=== PATIENT | female | born 1955 | race Caucasian/White ===

== ENCOUNTER 2021-05-05 15:30 | Inpatient (IN) ==
[2021-05-05] MEDS ORDERED: ALBUT/IPRATROP 3MG/0.5MG NEB 3 ML VIAL NEB STA (16:03)
[2021-05-05] MEDS ORDERED: SODIUM CHLORIDE 0.9% 500 ML IV ONE (16:03)
[2021-05-05] MEDS ORDERED: ACETAMINOPHEN 500 MG TAB PO STA (16:03)
--- NOTE | 2021-05-05 16:07 | Emergency Department Note ---
History of Present Illness General Chief complaint: Respiratory Problems Stated complaint: SOB/HIGH FEVER/CHEST PAIN Time Seen by Provider: 05/05/21 15:46 Source: patient Mode of arrival: ambulatory Limitations: no limitations History of Present Illness This patient is a 65-year-old female who presents to the emergency department for evaluation of cough, fever and shortness of breath. Patient states she has had symptoms for 3 to 4 days. She has been feeling more short of breath. She does have a history of COPD. She has been using her regular medications without relief. She reports that her mother has been sick with diarrhea recently. Patient vomited once yesterday but denies any diarrhea or abdominal pain. She has had headaches and body aches. She states her temperature has been up to 103 F. She did not receive a COVID-19 vaccine. She has not received an influenza vaccine. Home Medications Medication Instructions Recorded Confirmed Type cholecalciferol (vitamin D3) 25 50 mcg PO BID 11/17/19 05/05/21 History mcg (1,000 unit) tablet (Vitamin D3) duloxetine 60 mg capsule,delayed 120 mg PO QAM 11/17/19 05/05/21 History release fenofibrate 54 mg tablet 54 mg PO QAM 11/17/19 05/05/21 History ipratropium 20 mcg-albuterol 100 1 puff INHALATION Q6H PRN 11/17/19 05/05/21 History mcg/actuation mist for inhalation (Combivent Respimat) lovastatin 20 mg tablet 20 mg PO HS 11/17/19 05/05/21 History pramipexole 0.5 mg tablet 0.5 mg PO HS 11/17/19 05/05/21 History acetaminophen 325 mg tablet 650 mg PO QID PRN 01/24/20 05/05/21 History (Tylenol) solifenacin 5 mg tablet (Vesicare) 5 mg PO DAILY #90 tab 10/14/20 05/05/21 Rx famotidine 20 mg tablet 20 mg PO HS 05/05/21 05/05/21 History hydrocodone 5 mg-acetaminophen 325 1 tab PO TID PRN 05/05/21 05/05/21 History mg tablet metoprolol succinate 100 mg 100 mg PO HS 05/05/21 05/05/21 History tablet,extended release 24 hr ondansetron 4 mg disintegrating 0.4 mg TRANSLINGUAL DAILY PRN 05/05/21 05/05/21 History tablet Allergies Allergy/AdvReac Type Severity Reaction Status Date / Time diphenhydramine Allergy Intermediate SKIN Verified 05/05/21 16:48 IRRITATION hydroxychloroquine Allergy Intermediate SEVERE Verified 05/05/21 16:48 SKIN REACTION, HIVES methylprednisolone Allergy Intermediate SKIN Verified 05/05/21 16:48 IRRITATION neomycin Allergy Mild RASH Verified 05/05/21 16:48 Past Med/Surg History Medical History (Updated 05/06/21 @ 00:11 by Emelia Gore PA-C) Anxiety Chronic obstructive pulmonary disease Degenerative disc disease Fibromyalgia GERD (gastroesophageal reflux disease) History of anemia Hx of gout Hyperlipidemia Hypertension IBS (irritable bowel syndrome) Left ureteral stone Morbid obesity Osteoarthritis Pinched nerve BACK AREA Restless leg syndrome Surgical History History of cholecystectomy History of colonoscopy History of endometrial ablation History of open reduction and internal fixation (ORIF) procedure LEFT History of tooth extraction + GUM SURGERY History of total knee replacement RT Hx of total hysterectomy Nausea and vomiting after administration of anesthetic agent Family History Sister Family history of diabetes mellitus Other No family history of adverse response to anesthesia Social History Smoking Status: Former smoker Cigarettes Per Day: 10; Second Hand Exposure: No; Hx Alcohol Use: Yes Preferred Language: Polish Regional Planner Required: No Beliefs That Will Affect Care: None Current Living Situation: Spouse Feels Safe at Home: Yes Assistive Devices: Contacts and Glasses Review of Systems A total of 10 systems reviewed and were otherwise negative Physical Exam Vital Signs Vital Signs - 24 hr 05/05/21 15:38 05/05/21 16:22 05/05/21 16:23 Temperature 38 C H Temperature Source Temporal Artery Scan Pulse Rate 84 84 Pulse Rate [Right Finger] Pulse Rhythm [Right Finger] Pulse Strength [Right Finger] Respiratory Rate 24 19 Respiratory Effort / Characteristics Short of Breath SOB on Exertion Respiratory Depth Respiratory Pattern Regular Blood Pressure 158/88 H 131/74 Blood Pressure [Right Arm] Blood Pressure Mean 111 93 Blood Pressure Mean [Right Arm] Blood Pressure Position Sitting Pulse Oximetry 92 87 L 98 Oxygen Delivery Method Room Air Room Air Nasal Cannula Oxygen Flow Rate 2 Sepsis Recent Fever Within 48 Hours Yes Sepsis New/Unexplained Change in Mental Status No Sepsis Action Taken by Nursing No Action Required Oxygen Flow Rate - Titration 2 Pulse Oximetry Post Tiitration 98 05/05/21 16:35 05/05/21 17:30 05/05/21 17:57 Temperature Temperature Source Pulse Rate Pulse Rate [Right Finger] 83 82 Pulse Rhythm [Right Finger] Regular Pulse Strength [Right Finger] Normal Respiratory Rate 20 20 Respiratory Effort / Characteristics Non-Labored Spontaneous Non-Labored Spontaneous Respiratory Depth Normal Respiratory Pattern Regular Blood Pressure Blood Pressure [Right Arm] 161/75 H Blood Pressure Mean Blood Pressure Mean [Right Arm] 103 Blood Pressure Position Pulse Oximetry 99 90 97 Oxygen Delivery Method Nasal Cannula Room Air Nasal Cannula Oxygen Flow Rate 2 3 Sepsis Recent Fever Within 48 Hours Sepsis New/Unexplained Change in Mental Status Sepsis Action Taken by Nursing Oxygen Flow Rate - Titration Pulse Oximetry Post Tiitration 05/05/21 19:00 Temperature Temperature Source Pulse Rate Pulse Rate [Right Finger] 75 Pulse Rhythm [Right Finger] Regular Pulse Strength [Right Finger] Normal Respiratory Rate 20 Respiratory Effort / Characteristics Non-Labored Respiratory Depth Normal Respiratory Pattern Blood Pressure Blood Pressure [Right Arm] 179/109 H Blood Pressure Mean Blood Pressure Mean [Right Arm] 132 Blood Pressure Position Pulse Oximetry 96 Oxygen Delivery Method Nasal Cannula Oxygen Flow Rate 2 Sepsis Recent Fever Within 48 Hours Sepsis New/Unexplained Change in Mental Status Sepsis Action Taken by Nursing Oxygen Flow Rate - Titration Pulse Oximetry Post Tiitration VITALS: Vitals are noted on the nurse's note and reviewed by myself. GENERAL: This is a 65-year-old female, sitting up in bed, dyspneic appearing. SKIN: The skin was without rashes. EARS: External auditory canals clear, tympanic membranes pearly wagner without erythema or effusion bilaterally. EYES: Pupils equal round and reactive to light and accommodation. NOSE: Patent, turbinates without inflammation or discharge. MOUTH: Mucous membranes slightly dry. NECK: Supple without nuchal rigidity. No lymphadenopathy. HEART: Regular rate and rhythm without murmurs gallops or rubs. LUNGS: Expiratory wheezes and diminished breath sounds throughout all lung choudhary. EXTREMITIES: No pitting edema of the lower extremities. NEURO: Patient was alert and oriented to person place and time. Unsteady gait. Course Consultations Consultation #1: Dr. Santiago - [facility] [place] Administered Medications Discontinued Medications Acetaminophen (Acetaminophen 500 Mg Tab) 1,000 mg PO NOW STA Stop: 05/05/21 16:04 Last Admin: 05/05/21 16:42 Dose: 1,000 mg Documented by: [id number] Albuterol (Albut/Ipratrop 3mg/0.5mg Neb 3 Ml Vial) 3 ml NEB NOW STA Stop: 05/05/21 16:04 Last Admin: 05/05/21 16:34 Dose: 3 ml Documented by: [id number] Dexamethasone Sodium Phosphate (DexamethasonePf 10 Mg/Ml Vial) 6 mg IV NOW ONE Stop: 05/05/21 18:08 Last Admin: 05/05/21 18:40 Dose: 6 mg Documented by: [id number] Sodium Chloride (Nss) 500 mls @ 999 mls/hr IV .Q31M ONE Stop: 05/05/21 16:33 Last Infusion: 05/05/21 17:35 Dose: 0 mls/hr Documented by: [id number] Admin: 05/05/21 16:42 Dose: 999 mls/hr Documented by: [id number] Remdesivir 200 mg/ Sodium (Chloride) 250 mls @ 125 mls/hr IV ONE STA; Protocol Stop: 05/05/21 21:19 Last Infusion: 05/05/21 22:49 Dose: 0 mls/hr Documented by: [id number] Admin: 05/05/21 21:01 Dose: 125 mls/hr Documented by: [id number] Medical Decision Making Differential Diagnosis COVID-19, influenza, reactive airway disease, pneumonia, pneumothorax, COPD, CHF, infections, cardiac ischemia, pulmonary embolism, musculoskeletal, gastrointestinal, as well as other pathologies. Home Medications Current Medication List: was personally reviewed by me Laboratory Data Attestation: I reviewed the patient's lab results. Result diagrams: 05/05/21 16:12 05/05/21 16:12 Lab Results 05/05/21 05/05/21 05/05/21 Range/Units 15:46 15:46 16:12 WBC 4.04 L (4.8-10.8) K/uL RBC 4.56 (4.2-5.4) M/uL Hgb 13.0 (12.0-16.0) g/dL Hct 41.6 (37-47) % MCV 91.2 (80-100) fL MCH 28.5 (25-34) pg MCHC 31.3 L (32-36) g/dL RDW Std Deviation 48.7 H (36.4-46.3) fL RDW Coeff of Ana 14.5 (11.5-14.5) % Plt Count 153 (130-400) K/uL MPV 9.5 (7.4-10.4) fL Immature Gran % (Auto) 0.2 % Neut % (Auto) 59.2 % Lymph % (Auto) 22.8 % [place] % (Auto) 17.6 % Eos % (Auto) 0.0 % Baso % (Auto) 0.2 % Neut # (Auto) 2.39 (1.4-6.5) K/uL Lymph # (Auto) 0.92 L (1.2-3.4) K/uL [place] # (Auto) 0.71 H (0.11-0.59) K/uL Eos # (Auto) 0.00 (0-0.5) K/uL Baso # (Auto) 0.01 (0-0.2) K/uL Immature Gran # (Auto) 0.01 (0.00-0.02) K/uL PT (9.0-12.0) Seconds INR (0.9-1.1) APTT (21.0-31.0) Seconds PTT Ratio D-Dimer (0-500) ug/L FEU Sodium (136-145) mmol/L Potassium (3.5-5.1) mmol/L Chloride (98-107) mmol/L Carbon Dioxide (21-32) mmol/L Anion Gap (3-11) BUN (7-18) mg/dl Creatinine (0.6-1.2) mg/dl Est Cr Clr Drug Dosing ml/min Est GFR ( Amer) ml/min Est GFR (Non-Af Amer) ml/min BUN/Creatinine Ratio (10-20) Glucose (70-99) mg/dl Calcium (8.5-10.1) mg/dl Magnesium (1.8-2.4) mg/dl Total Bilirubin (0.2-1) mg/dl AST (15-37) U/L ALT (12-78) U/L Alkaline Phosphatase (45-117) U/L Troponin I (0-0.045) ng/ml C-Reactive Protein (0-0.29) mg/dl Total Protein (6.4-8.2) gm/dl Albumin (3.4-5.0) gm/dl Globulin (2.5-4.0) gm/dl Albumin/Globulin Ratio (0.9-2) Procalcitonin (0-0.5) ng/ml SARS-CoV-2 (PCR) POSITIVE A* (Negative) Influ A Molecular Assay Negative (Negative) Influ B Molecular Assay Negative (Negative) 05/05/21 05/05/21 05/05/21 Range/Units 16:12 16:12 16:12 WBC (4.8-10.8) K/uL RBC (4.2-5.4) M/uL Hgb (12.0-16.0) g/dL Hct (37-47) % MCV (80-100) fL MCH (25-34) pg MCHC (32-36) g/dL RDW Std Deviation (36.4-46.3) fL RDW Coeff of Ana (11.5-14.5) % Plt Count (130-400) K/uL MPV (7.4-10.4) fL Immature Gran % (Auto) % Neut % (Auto) % Lymph % (Auto) % [place] % (Auto) % Eos % (Auto) % Baso % (Auto) % Neut # (Auto) (1.4-6.5) K/uL Lymph # (Auto) (1.2-3.4) K/uL [place] # (Auto) (0.11-0.59) K/uL Eos # (Auto) (0-0.5) K/uL Baso # (Auto) (0-0.2) K/uL Immature Gran # (Auto) (0.00-0.02) K/uL PT 10.5 (9.0-12.0) Seconds INR 1.0 (0.9-1.1) APTT 28.7 (21.0-31.0) Seconds PTT Ratio 1.1 D-Dimer (0-500) ug/L FEU Sodium 138 (136-145) mmol/L Potassium 3.8 (3.5-5.1) mmol/L Chloride 104 (98-107) mmol/L Carbon Dioxide 27 (21-32) mmol/L Anion Gap 7.0 (3-11) BUN 15 (7-18) mg/dl Creatinine 0.86 (0.6-1.2) mg/dl Est Cr Clr Drug Dosing 88.4 ml/min Est GFR ( Amer) 82.2 ml/min Est GFR (Non-Af Amer) 70.9 ml/min BUN/Creatinine Ratio 17.1 (10-20) Glucose 104 H (70-99) mg/dl Calcium 8.8 (8.5-10.1) mg/dl Magnesium 2.1 (1.8-2.4) mg/dl Total Bilirubin 0.4 (0.2-1) mg/dl AST 22 (15-37) U/L ALT 24 (12-78) U/L Alkaline Phosphatase 71 (45-117) U/L Troponin I < 0.015 (0-0.045) ng/ml C-Reactive Protein 0.49 H (0-0.29) mg/dl Total Protein 7.5 (6.4-8.2) gm/dl Albumin 3.3 L (3.4-5.0) gm/dl Globulin 4.2 H (2.5-4.0) gm/dl Albumin/Globulin Ratio 0.8 L (0.9-2) Procalcitonin 0.05 (0-0.5) ng/ml SARS-CoV-2 (PCR) (Negative) Influ A Molecular Assay (Negative) Influ B Molecular Assay (Negative) 05/05/21 Range/Units 16:12 WBC (4.8-10.8) K/uL RBC (4.2-5.4) M/uL Hgb (12.0-16.0) g/dL Hct (37-47) % MCV (80-100) fL MCH (25-34) pg MCHC (32-36) g/dL RDW Std Deviation (36.4-46.3) fL RDW Coeff of Ana (11.5-14.5) % Plt Count (130-400) K/uL MPV (7.4-10.4) fL Immature Gran % (Auto) % Neut % (Auto) % Lymph % (Auto) % [place] % (Auto) % Eos % (Auto) % Baso % (Auto) % Neut # (Auto) (1.4-6.5) K/uL Lymph # (Auto) (1.2-3.4) K/uL [place] # (Auto) (0.11-0.59) K/uL Eos # (Auto) (0-0.5) K/uL Baso # (Auto) (0-0.2) K/uL Immature Gran # (Auto) (0.00-0.02) K/uL PT (9.0-12.0) Seconds INR (0.9-1.1) APTT (21.0-31.0) Seconds PTT Ratio D-Dimer 480 (0-500) ug/L FEU Sodium (136-145) mmol/L Potassium (3.5-5.1) mmol/L Chloride (98-107) mmol/L Carbon Dioxide (21-32) mmol/L Anion Gap (3-11) BUN (7-18) mg/dl Creatinine (0.6-1.2) mg/dl Est Cr Clr Drug Dosing ml/min Est GFR ( Amer) ml/min Est GFR (Non-Af Amer) ml/min BUN/Creatinine Ratio (10-20) Glucose (70-99) mg/dl Calcium (8.5-10.1) mg/dl Magnesium (1.8-2.4) mg/dl Total Bilirubin (0.2-1) mg/dl AST (15-37) U/L ALT (12-78) U/L Alkaline Phosphatase (45-117) U/L Troponin I (0-0.045) ng/ml C-Reactive Protein (0-0.29) mg/dl Total Protein (6.4-8.2) gm/dl Albumin (3.4-5.0) gm/dl Globulin (2.5-4.0) gm/dl Albumin/Globulin Ratio (0.9-2) Procalcitonin (0-0.5) ng/ml SARS-CoV-2 (PCR) (Negative) Influ A Molecular Assay (Negative) Influ B Molecular Assay (Negative) Imaging Data Attestation: I personally reviewed and interpreted this imaging study as follows: Radiologist's Impression: Chest X-Ray 05/05/21 15:43 XR chest 1V portable CLINICAL HISTORY: SOB. . Cough and chest pain COMPARISON STUDY: 04/15/2020 TECHNIQUE: 1 view of the chest FINDINGS: Single frontal view of the chest demonstrates the cardiomediastinal silhouette to be within normal limits. There is a decreased inspiratory effort with elevation of the hemidiaphragms and crowding of the bronchovascular markings at the lung bases and centrally. The lungs are clear of alveolar opacities. There is no evidence for pleural effusion. There is no evidence for vascular congestion. There is no acute osseous pathology. IMPRESSION: There is a decreased inspiratory effort with otherwise no acute chest disease. ACT 112: Negative or not required by law. Electronically signed by: Hay Garcia M.D. 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 Patient was placed on the farm equipment engine mechanic. Patient was noted to be in normal sinus rhythm at an initial rate of 73 bpm. The patient is a 65-year-old female who presents today complaining of cough, fever and shortness of breath. Patient does have a history of COPD. She was found to be COVID-19 positive. Patient given a DuoNeb treatment due to wheezing. She was given dexamethasone. Patient was noted to be hypoxic both before and after the DuoNeb treatment, down to 87% on room air. She was placed on 2 L of oxygen via nasal cannula with improvement. [facility] the patient for further care. Impression & Plan COVID-19 virus infection, Hypoxia Discharge Plan Visit Data Chief Complaint: Respiratory Problems Stated Complaint: SOB/HIGH FEVER/CHEST PAIN ED Provider: [facility] ED Midlevel Provider: Emelia Gore Discharge Problem: COVID-19 virus infection, Hypoxia
[2021-05-05 16:26] LABS: Basophils # (auto) 0.01 K/uL (0-0.2); Basophils % (auto) 0.2 %; Hematocrit (blood only) 41.6 % (37-47); Immature Granulocytes # (auto) 0.01 K/uL (0.00-0.02); Immature Granulocytes % (auto) 0.2 %; Lymphocytes # (auto) 0.92 K/uL (1.2-3.4); Lymphocytes % (auto) 22.8 %; Mean Corpuscular Hemoglobin 28.5 pg (25-34); Mean Corpuscular Hgb Conc 31.3 g/dL (32-36); Mean Corpuscular Volume 91.2 fL (80-100); Mean Platelet Volume 9.5 fL (7.4-10.4); Monocytes # (auto) 0.71 K/uL (0.11-0.59); Monocytes % (auto) 17.6 %; Neutrophils # (auto) 2.39 K/uL (1.4-6.5); Neutrophils % (auto) 59.2 %; Platelet Count 153 K/uL (130-400); RDW Coefficient of Variation 14.5 % (11.5-14.5); RDW Standard Deviation 48.7 fL (36.4-46.3); Red Blood Count 4.56 M/uL (4.2-5.4); White Blood Count 4.04 K/uL (4.8-10.8)
[2021-05-05 16:29] LABS: Influenza A virus by PCR Negative (Negative); Influenza B virus by PCR Negative (Negative)
--- NOTE | 2021-05-05 16:35 | XRay Report ---
XR chest 1V portable CLINICAL HISTORY: SOB. . Cough and chest pain COMPARISON STUDY: 04/15/2020 TECHNIQUE: 1 view of the chest FINDINGS: Single frontal view of the chest demonstrates the cardiomediastinal silhouette to be within normal li mits. There is a decreased inspiratory effort with elevation of the hemidiaphragms and crowding of th e bronchovascular markings at the lung bases and centrally. The lungs are clear of alveolar opacities . There is no evidence for pleural effusion. There is no evidence for vascular congestion. There is n o acute osseous pathology. IMPRESSION: There is a decreased inspiratory effort with otherwise no acute chest disease. ACT 112: Negative or not required by law. Electronically signed by: Hay Garcia M.D. 05/05/2021 4:34 PM
[2021-05-05 16:41] LABS: Partial Thromboplastin Ratio 1.1; Partial Thromboplastin Time 28.7 Seconds (21.0-31.0); Prothrombin Time 10.5 Seconds (9.0-12.0)
[2021-05-05 16:49] LABS: Alanine Aminotransferase 24 U/L (12-78); Albumin Level 3.3 gm/dl (3.4-5.0); Aspartate Aminotransferase 22 U/L (15-37); BUN Creatinine Ratio 17.1 (10-20); Blood Urea Nitrogen 15 mg/dl (7-18); C Reactive Protein 0.49 mg/dl (0-0.29); Calcium 8.8 mg/dl (8.5-10.1); Carbon Dioxide 27 mmol/L (21-32); Chloride 104 mmol/L (98-107); Creatinine Clr Calc Pharmacy 88.4 ml/min; Est GFR (African American) 82.2 ml/min; Est GFR (Non-African American) 70.9 ml/min; Glucose 104 mg/dl (70-99); Magnesium 2.1 mg/dl (1.8-2.4); Potassium 3.8 mmol/L (3.5-5.1); Sodium 138 mmol/L (136-145)
[2021-05-05 16:54] LABS: Albumin Globulin Ratio 0.8 (0.9-2); Alkaline Phosphatase 71 U/L (45-117); Bilirubin,Total 0.4 mg/dl (0.2-1); Globulin 4.2 gm/dl (2.5-4.0); Total Protein 7.5 gm/dl (6.4-8.2); Troponin I < 0.015 ng/ml (0-0.045)
[2021-05-05] MEDS ORDERED: dexAMETHasone**PF** 10 MG/ML VIAL IV ONE (18:07)
--- NOTE | 2021-05-05 18:45 | History & Physical Report ---
Date of Service May 05, 2021 Assessment & Plan (1) Pneumonia due to COVID-19 virus: Plan: Unvaccinated Day 3 of illness - no significant pneumonia on CXR however suspect CXR is just lagging given crackles on auscultation Given day 3 of illness and small amount of O2 she is a good candidate for remdesivir - discussed with patient and will start this. Continue dexamethasone 6mg IV daily (2) Hypoxia: Plan: Prior usual O2 sats per EHR 93-97% Aim O2 sats > 90% (3) Restless leg syndrome: Plan: Continue pramipexole (4) Anxiety: Plan: Continue duloxetine 120mg PO daily Of note she is currently her for the second time. (5) Chronic obstructive pulmonary disease: Plan: No acute exacerbation however she feels significantly better after this was given in the ER therefore will continue duonebs QID (6) Urinary incontinence: Plan: Continue Vesicare 5mg PO daily (7) Hypertension: Plan: Continue metoprolol succinate 100mg PO daily (8) Hyperlipidemia: Plan: Continue lovastatin 20mg PO daily (9) GERD (gastroesophageal reflux disease): Plan: Continue famotidine 20mg PO daily (10) Morbid obesity: Plan: Noted, likely an element of obesity hypoventilation Plan: VTE Prophylaxis - Lovenox 40mg SQ BID (increased dose due to obesity) Diet - Regular Disposition - admit to med/surg, COVID isolation precautions Admission and Anticipated Discharge Date Admission Date: May 05, 2021 History of Present Illness Chief Complaint: Shortness of breath, fatigue, fevers Primary Care Provider: Mica Orourke Malika Hull is a 65 year old female with fever, chills and shortness of breath. She reports being unwell for the last 3 days with these symptoms. No known COVID-19 contacts. She is unvaccinated. She reports her brother of COVID-19 last year. Associated loss of taste and smell and poor appetite. She reports chest pain and abdominal pain while coughing but not outside these times. No diarrhea. In the ER she was hypoxic despite minimal CXR changes requiring 2LPM O2 to maintain sats > 90%. O2 sats drop to 84% on room air. Allergies Allergy/AdvReac Type Severity Reaction Status Date / Time diphenhydramine Allergy Intermediate SKIN Verified 05/05/21 16:48 IRRITATION hydroxychloroquine Allergy Intermediate SEVERE Verified 05/05/21 16:48 SKIN REACTION, HIVES methylprednisolone Allergy Intermediate SKIN Verified 05/05/21 16:48 IRRITATION neomycin Allergy Mild RASH Verified 05/05/21 16:48 Home Medications Medication Instructions Recorded Confirmed Type cholecalciferol (vitamin D3) 25 50 mcg PO BID 11/17/19 05/05/21 History mcg (1,000 unit) tablet (Vitamin D3) duloxetine 60 mg capsule,delayed 120 mg PO QAM 11/17/19 05/05/21 History release fenofibrate 54 mg tablet 54 mg PO QAM 11/17/19 05/05/21 History ipratropium 20 mcg-albuterol 100 1 puff INHALATION Q6H PRN 11/17/19 05/05/21 History mcg/actuation mist for inhalation (Combivent Respimat) lovastatin 20 mg tablet 20 mg PO HS 11/17/19 05/05/21 History pramipexole 0.5 mg tablet 0.5 mg PO HS 11/17/19 05/05/21 History acetaminophen 325 mg tablet 650 mg PO QID PRN 01/24/20 05/05/21 History (Tylenol) solifenacin 5 mg tablet (Vesicare) 5 mg PO DAILY #90 tab 10/14/20 05/05/21 Rx famotidine 20 mg tablet 20 mg PO HS 05/05/21 05/05/21 History hydrocodone 5 mg-acetaminophen 325 1 tab PO TID PRN 05/05/21 05/05/21 History mg tablet metoprolol succinate 100 mg 100 mg PO HS 05/05/21 05/05/21 History tablet,extended release 24 hr ondansetron 4 mg disintegrating 0.4 mg TRANSLINGUAL DAILY PRN 05/05/21 05/05/21 History tablet Past Med/Surg History Medical History (Updated 05/06/21 @ 00:11 by Emelia Gore PA-C) Anxiety Chronic obstructive pulmonary disease Degenerative disc disease Fibromyalgia GERD (gastroesophageal reflux disease) History of anemia Hx of gout Hyperlipidemia Hypertension IBS (irritable bowel syndrome) Left ureteral stone Morbid obesity Osteoarthritis Pinched nerve BACK AREA Restless leg syndrome Surgical History History of cholecystectomy History of colonoscopy History of endometrial ablation History of open reduction and internal fixation (ORIF) procedure LEFT History of tooth extraction + GUM SURGERY History of total knee replacement RT Hx of total hysterectomy Nausea and vomiting after administration of anesthetic agent Family History Sister Family history of diabetes mellitus Other No family history of adverse response to anesthesia Social History Smoking Status: Former smoker Cigarettes Per Day: 10; Second Hand Exposure: No; Hx Alcohol Use: Yes Preferred Language: Mexican Account Services Specialist Required: No Beliefs That Will Affect Care: None Current Living Situation: Spouse Feels Safe at Home: Yes Assistive Devices: Contacts and Glasses Review of Systems Review of Systems: All systems reviewed & are unremarkable except as noted in HPI & below Physical Exam Constitutional: WD/WN, vitals as above no acute distress Eyes: + anicteric sclerae; normal pupil size ENMT: external ear and nose normal, oropharynx normal Neck: trachea midline, no thyromegaly Respiratory: normal respiratory effort; no respiratory distress Auscultation: + crackles (bibasal fine); no diminished lung sounds, no rales, no rhonchi and no wheezes Cardiovascular: RRR, no murmur, no edema Gastrointestinal (Abdomen): normal bowel sounds, soft, nontender, no hepatosplenomegaly Musculoskeletal: no cyanosis or clubbing, extremities motor strength 5/5 Skin: no rashes, warm and dry Neurologic: moves all extremities and awake; not confused Psychiatric: A+Ox3, euthymic affect Genitourinary: no CVA tenderness Results & Data Results & Data ([facility]) Vital Signs (Past 12 Hours) Vital Signs Temp Pulse Pulse Resp BP BP Pulse Ox 05/05/21 17:57 97 05/05/21 17:30 82 20 161/75 H 90 05/05/21 16:35 83 20 99 05/05/21 16:23 84 19 131/74 98 05/05/21 16:22 87 L 05/05/21 15:38 38 C H 84 24 158/88 H 92 Diagnostic Findings XR chest 1V portable CLINICAL HISTORY: SOB. . Cough and chest pain COMPARISON STUDY: 04/15/2020 TECHNIQUE: 1 view of the chest FINDINGS: Single frontal view of the chest demonstrates the cardiomediastinal silhouette to be within normal limits. There is a decreased inspiratory effort with elevation of the hemidiaphragms and crowding of the bronchovascular markings at the lung bases and centrally. The lungs are clear of alveolar opacities. There is no evidence for pleural effusion. There is no evidence for vascular congestion. There is no acute osseous pathology. IMPRESSION: There is a decreased inspiratory effort with otherwise no acute chest disease. Medications Administered ER Medications Given: Acetaminophen 1000mg PO NSS 500ml bolus Duoneb 3ml Dexamethasone 6mg IV ECG Indication: SOB/dyspnea Rate (beats per minute): 84 Rhythm: normal sinus Findings: no acute ischemic change Comparison ECG Date: from (April 15, 2021) Change: no significant change Code Status & VTE Plan Code Status Full VTE Prophylaxis Plan VTE Prophylaxis will be ordered: Yes PG Care Time/CCT Total # of Minutes Spent Total Time Spent with Patient: Total time spent is greater than 50% in coordination of care (as documented) at patient's floor/unit and/or counseling patient: Coding Level of Care Code 05165 Initial Inpt Care Lvl 2 Diagnoses Pneumonia due to COVID-19 virus U07.1; J12.82 Hypoxia R09.02 Restless leg syndrome G25.81 Anxiety F41.9 Chronic obstructive pulmonary disease J44.9 Urinary incontinence R32 Hypertension I10 Hyperlipidemia E78.5 GERD (gastroesophageal reflux disease) K21.9 Morbid obesity E66.01
[2021-05-05] MEDS ORDERED: REMDESIVIR 200 MG in SODIUM CHLORIDE 0.9% 210 ML IV STA (19:20)
[2021-05-05 19:31] LABS: D Dimer 480 ug/L FEU (0-500)
[2021-05-06] MEDS ORDERED: ACETAMINOPHEN 325 MG TAB PO PRN (01:04)
[2021-05-06] MEDS ORDERED: SODIUM CHLORIDE 0.9% 10ML FLUSH IV SCH (01:04)
[2021-05-06] MEDS ORDERED: ALUMINUM/MAGNESIUM SUSP 30 ML UDC PO PRN (01:04)
[2021-05-06] MEDS ORDERED: POLYETHYLENE (MIRALAX) 17 GM PACK PO PRN (01:04)
[2021-05-06] MEDS ORDERED: ONDANSETRON INJ 2 MG/ML 2 ML VIAL IV PRN (01:04)
[2021-05-06] MEDS: PRAMIPEXOLE DIHYDROCHLO 0.5 MG TAB PO SCH ×2 (03:01→21:27)
[2021-05-06] MEDS: LOVASTATIN 20 MG TAB PO SCH ×2 (03:01→21:20)
[2021-05-06] MEDS: CHOLECALCIFEROL 1,000 UNITS 25 MCG TAB PO SCH ×3 (03:01→21:19)
[2021-05-06] MEDS: FAMOTIDINE 20 MG TAB PO SCH ×2 (03:02→21:20)
[2021-05-06] MEDS: METOPROLOL SUCC 50MG EXT REL TAB PO SCH ×2 (03:02→21:25)
[2021-05-06] MEDS ORDERED: ALBUT/IPRATROP 3MG/0.5MG NEB 3 ML VIAL NEB SCH (07:00)
--- NOTE | 2021-05-06 07:28 | Electrocardiogram Report ---
Test Reason : Blood Pressure : / mmHG Vent. Rate : 084 BPM Atrial Rate : 084 BPM P-R Int : 202 ms QRS Dur : 084 ms QT Int : 358 ms P-R-T Axes : 008 -08 035 degrees QTc Int : 423 ms Normal sinus rhythm Normal ECG When compared with ECG of 15-APR-2020 11:59, No significant change was found Confirmed by Darian Peters ([id number]) on 05/06/2021 7:28:05 AM Referred By: REFERRED SELF Confirmed By:Luis Peters
[2021-05-06] MEDS: dexAMETHasone 6 MG in SYRINGE 0 ML IV SCH (08:13)
[2021-05-06] MEDS: DULoxetine HCL 60 MG CAP PO SCH (08:13)
[2021-05-06] MEDS: ENOXAPARIN INJ 40 MG/0.4 ML SYR SQ SCH ×2 (08:14→21:17)
[2021-05-06] MEDS: FENOFIBRATE NANOCRYSTALLIZED 48 MG TABLET PO SCH (08:14)
[2021-05-06 09:20] LABS: Hematocrit (blood only) 40.2 % (37-47); Hemoglobin 12.5 g/dL (12.0-16.0); Lymphocytes # (auto) 0.85 K/uL (1.2-3.4); Lymphocytes % (auto) 36.8 %; Mean Corpuscular Hgb Conc 31.1 g/dL (32-36); Mean Corpuscular Volume 90.1 fL (80-100); Mean Platelet Volume 9.6 fL (7.4-10.4); Monocytes # (auto) 0.43 K/uL (0.11-0.59); Monocytes % (auto) 18.6 %; Neutrophils # (auto) 1.03 K/uL (1.4-6.5); Neutrophils % (auto) 44.6 %; Platelet Count 158 K/uL (130-400); RDW Coefficient of Variation 14.1 % (11.5-14.5); RDW Standard Deviation 46.7 fL (36.4-46.3); Red Blood Count 4.46 M/uL (4.2-5.4); White Blood Count 2.31 K/uL (4.8-10.8)
[2021-05-06 09:40] LABS: BUN Creatinine Ratio 21.4 (10-20); Calcium 8.9 mg/dl (8.5-10.1); Creatinine Clr Calc Pharmacy 120.7 ml/min; Est GFR (African American) 109.1 ml/min; Est GFR (Non-African American) 94.1 ml/min; Potassium 4.3 mmol/L (3.5-5.1)
[2021-05-06 09:42] LABS: Albumin Globulin Ratio 0.7 (0.9-2); Bilirubin,Total 0.3 mg/dl (0.2-1); Globulin 4.2 gm/dl (2.5-4.0); Total Protein 7.2 gm/dl (6.4-8.2)
[2021-05-06] MEDS: HYDROCODONE/ACETAMOPHEN 5/325MG TAB PO PRN (10:32)
--- NOTE | 2021-05-06 12:42 | Hospitalist Progress Note ---
Date of Service May 06, 2021 Assessment & Plan (1) Pneumonia due to COVID-19 virus: Plan: Unvaccinated. Initial symptoms on 05/03/2021. - Continue dexamethasone 6mg daily x 10 days (Last day: 05/14/2021) - Continue remdesivir - Supplemental O2 to keep SpO2 > 90% -> Presently stable on 2 L NC. (2) Hypoxia: Plan: Prior usual O2 sats per EHR 93-97% Aim O2 sats > 90% (3) Hypertension: Plan: BP today is 130/85. - Continue metoprolol succinate 100mg PO daily (4) Anxiety: Plan: - Continue duloxetine 120mg PO daily (5) Chronic obstructive pulmonary disease: Plan: No acute exacerbation; however, she feels significantly better after treatments. - DuoNebs PRN (6) Urinary incontinence: Plan: - Continue Vesicare 5mg PO daily (7) Hyperlipidemia: Plan: - Continue lovastatin 20mg PO daily (8) GERD (gastroesophageal reflux disease): Plan: - Continue famotidine 20mg PO daily (9) Restless leg syndrome: Plan: - Continue pramipexole (10) Morbid obesity: Plan: Noted, likely an element of obesity hypoventilation. Plan: VTE Prophylaxis - Lovenox 40mg SQ BID (increased dose due to obesity) Admission and Anticipated Discharge Date Admission Date: May 05, 2021 Subjective Severe headache today. Otherwise stable. Some mild shortness of breath even at r est. Has some bloating sensation from constipation. Reports no fevers/chills, chest pain, abdominal pain, nausea, or vomiting. Physical Exam Constitutional: WD/WN, vitals as above Eyes: EOM intact bilaterally; no conjunctival abnormality ENMT: external ear and nose normal, oropharynx normal Neck: trachea midline, no thyromegaly normal visual inspection Respiratory: normal respiratory effort, lungs clear to auscultation no respiratory distress Cardiovascular: RRR, no murmur, no edema Gastrointestinal (Abdomen): Inspection/Auscultation: abdomen normal to inspection; abdomen not distended Musculoskeletal: no cyanosis or clubbing, extremities motor strength 5/5 Skin: no rashes, warm and dry Neurologic: moves all extremities and awake Psychiatric: Orientation: alert, oriented to person and cooperative Results & Data Results & Data ([facility]) Vital Signs (Past 12 Hours) Vital Signs Temp Pulse Resp BP Pulse Ox 11/27/21 10:49 71 18 129/85 96 05/06/21 08:26 37.2 C 78 18 176/95 H 94 05/06/21 07:23 69 16 98 05/06/21 05:01 70 144/62 H 95 05/06/21 03:07 74 155/83 H 93 05/06/21 01:08 74 133/76 92 05/06/21 01:01 73 133/76 95 PG Care Time/CCT Total # of Minutes Spent Total Time Spent with Patient: Total time spent is greater than 50% in coordination of care (as documented) at patient's floor/unit and/or counseling patient: Coding Level of Care Code 08377 Subseq Hosp Care Lvl 3 Diagnoses Pneumonia due to COVID-19 virus U07.1; J12.82 Hypoxia R09.02 Restless leg syndrome G25.81 Anxiety F41.9 Chronic obstructive pulmonary disease J44.9 Urinary incontinence R32 Hypertension I10 Hyperlipidemia E78.5 GERD (gastroesophageal reflux disease) K21.9 Morbid obesity E66.01
[2021-05-06] MEDS: SENNA 8.6 MG TAB PO SCH ×2 (13:27→21:32)
[2021-05-06] MEDS ORDERED: traZODone HCL 50 MG TAB PO ONE (19:30)
[2021-05-06] MEDS: REMDESIVIR 100 MG in SODIUM CHLORIDE 0.9% 230 ML IV SCH (19:56)
[2021-05-06] MEDS: SODIUM CHLORIDE 0.9% 10ML FLUSH IV SCH (21:14)
[2021-05-07] MEDS: ALBUT/IPRATROP 3MG/0.5MG NEB 3 ML VIAL NEB PRN (00:56)
[2021-05-07] MEDS: DULoxetine HCL 60 MG CAP PO SCH (09:13)
[2021-05-07] MEDS: dexAMETHasone 6 MG in SYRINGE 0 ML IV SCH (09:14)
[2021-05-07] MEDS: ENOXAPARIN INJ 40 MG/0.4 ML SYR SQ SCH ×2 (09:14→21:13)
[2021-05-07] MEDS: FENOFIBRATE NANOCRYSTALLIZED 48 MG TABLET PO SCH (09:15)
[2021-05-07] MEDS: SENNA 8.6 MG TAB PO SCH ×2 (09:16→21:11)
[2021-05-07] MEDS: HYDROCODONE/ACETAMOPHEN 5/325MG TAB PO PRN ×2 (12:56→22:44)
--- NOTE | 2021-05-07 13:44 | Hospitalist Progress Note ---
Date of Service May 07, 2021 Assessment & Plan (1) Pneumonia due to COVID-19 virus: Plan: Unvaccinated. Initial symptoms on 05/03/2021. - Continue dexamethasone 6mg daily x 10 days (Last day: 05/14/2021) - Continue remdesivir - Supplemental O2 to keep SpO2 > 90% -> Presently stable on room air. Asked if she wanted to go home today. She felt there were too many issues to safely go home today, though I did pastoral counselor her that issues like loss of appetite and cough may take weeks to resolve. For now, will stay another 24 hours and re- asses. (2) Hypoxia: Plan: Prior usual O2 sats per EHR 93-97% Aim O2 sats > 90% (3) Hypertension: Plan: BP today is 150/85. - Continue metoprolol succinate 100mg PO daily (4) Anxiety: Plan: - Continue duloxetine 120mg PO daily (5) Chronic obstructive pulmonary disease: Plan: No acute exacerbation; however, she feels significantly better after treatments. - DuoNebs PRN (6) Urinary incontinence: Plan: - Continue Vesicare 5mg PO daily (7) Hyperlipidemia: Plan: - Continue lovastatin 20mg PO daily (8) GERD (gastroesophageal reflux disease): Plan: - Continue famotidine 20mg PO daily (9) Restless leg syndrome: Plan: - Continue pramipexole (10) Morbid obesity: Plan: Noted, likely an element of obesity hypoventilation. Plan: VTE Prophylaxis - Lovenox 40mg SQ BID (increased dose due to obesity) Admission and Anticipated Discharge Date Admission Date: May 05, 2021 Subjective Reports some subjective shortness of breath, lightheadedness, cough, and fatigue. Does not feel she can go home today. Reports no fevers/chills, chest pain, shortness of breath, abdominal pain, nausea, or vomiting. Physical Exam Constitutional: WD/WN, vitals as above Eyes: EOM intact bilaterally; no conjunctival abnormality ENMT: external ear and nose normal, oropharynx normal Neck: trachea midline, no thyromegaly normal visual inspection Respiratory: normal respiratory effort, lungs clear to auscultation no respiratory distress Cardiovascular: RRR, no murmur, no edema Gastrointestinal (Abdomen): Inspection/Auscultation: abdomen normal to inspection; abdomen not distended Musculoskeletal: no cyanosis or clubbing, extremities motor strength 5/5 Skin: no rashes, warm and dry Neurologic: moves all extremities and awake Psychiatric: Orientation: alert, oriented to person and cooperative Results & Data Results & Data ([facility]) Vital Signs (Past 12 Hours) Vital Signs Temp Pulse Resp BP Pulse Ox 05/07/21 09:07 36.5 C 69 17 152/83 H 95 05/07/21 04:33 36.5 C 68 18 135/87 94 05/07/21 02:20 68 22 129/91 98 PG Care Time/CCT Total # of Minutes Spent Total Time Spent with Patient: Total time spent is greater than 50% in coordination of care (as documented) at patient's floor/unit and/or counseling patient: Coding Level of Care Code 22387 Subseq Hosp Care Lvl 2 Diagnoses Pneumonia due to COVID-19 virus U07.1; J12.82 Hypoxia R09.02 Hypertension I10 Anxiety F41.9 Chronic obstructive pulmonary disease J44.9 Urinary incontinence R32 Hyperlipidemia E78.5 GERD (gastroesophageal reflux disease) K21.9 Restless leg syndrome G25.81 Morbid obesity E66.01
[2021-05-07] MEDS: CHOLECALCIFEROL 1,000 UNITS 25 MCG TAB PO SCH ×2 (14:27→21:10)
[2021-05-07] MEDS: REMDESIVIR 100 MG in SODIUM CHLORIDE 0.9% 230 ML IV SCH (19:48)
[2021-05-07] MEDS: SODIUM CHLORIDE 0.9% 10ML FLUSH IV SCH (21:07)
[2021-05-07] MEDS: METOPROLOL SUCC 50MG EXT REL TAB PO SCH (21:11)
[2021-05-07] MEDS: LOVASTATIN 20 MG TAB PO SCH (21:11)
[2021-05-07] MEDS: PRAMIPEXOLE DIHYDROCHLO 0.5 MG TAB PO SCH (21:11)
[2021-05-07] MEDS: FAMOTIDINE 20 MG TAB PO SCH (22:38)
[2021-05-08] MEDS: CHOLECALCIFEROL 1,000 UNITS 25 MCG TAB PO SCH ×2 (08:57→21:01)
[2021-05-08] MEDS: dexAMETHasone 6 MG in SYRINGE 0 ML IV SCH (08:58)
[2021-05-08] MEDS: DULoxetine HCL 60 MG CAP PO SCH (08:58)
[2021-05-08] MEDS: SENNA 8.6 MG TAB PO SCH ×2 (08:58→21:01)
[2021-05-08] MEDS: FENOFIBRATE NANOCRYSTALLIZED 48 MG TABLET PO SCH (08:58)
[2021-05-08] MEDS: ENOXAPARIN INJ 40 MG/0.4 ML SYR SQ SCH ×2 (08:58→21:01)
[2021-05-08] MEDS: ALBUT/IPRATROP 3MG/0.5MG NEB 3 ML VIAL NEB PRN (11:00)
[2021-05-08] MEDS: HYDROCODONE/ACETAMOPHEN 5/325MG TAB PO PRN ×2 (12:19→20:55)
[2021-05-08] MEDS ORDERED: CLARITHROMYCIN 500 MG TAB PO ONE (16:34)
[2021-05-08] MEDS: REMDESIVIR 100 MG in SODIUM CHLORIDE 0.9% 230 ML IV SCH (20:56)
[2021-05-08] MEDS: FAMOTIDINE 20 MG TAB PO SCH (21:00)
[2021-05-08] MEDS: METOPROLOL SUCC 50MG EXT REL TAB PO SCH (21:00)
[2021-05-08] MEDS: PRAMIPEXOLE DIHYDROCHLO 0.5 MG TAB PO SCH (21:01)
[2021-05-08] MEDS: SODIUM CHLORIDE 0.9% 10ML FLUSH IV SCH (22:01)
--- NOTE | 2021-05-08 22:08 | Hospitalist Progress Note ---
Date of Service May 08, 2021 Assessment & Plan (1) Pneumonia due to COVID-19 virus: Plan: Unvaccinated. Initial symptoms on 05/03/2021. - Continue dexamethasone 6mg daily x 10 days (Last day: 05/14/2021) - Continue remdesivir - Supplemental O2 to keep SpO2 > 90% -> Presently stable on room air. Patient reports she does not feel safe to go home as she feels fatigued. Will monitor for another 24 hours. If continues to be on room air, will discharg e. (2) Hypoxia: Plan: Prior usual O2 sats per EHR 93-97% Aim O2 sats > 90% (3) Hypertension: Plan: BP today is 150/85. - Continue metoprolol succinate 100mg PO daily (4) Anxiety: Plan: - Continue duloxetine 120mg PO daily (5) Chronic obstructive pulmonary disease: Plan: No acute exacerbation; however, she feels significantly better after treatments. - DuoNebs PRN (6) Urinary incontinence: Plan: - Continue Vesicare 5mg PO daily (7) Hyperlipidemia: Plan: - Continue lovastatin 20mg PO daily (8) GERD (gastroesophageal reflux disease): Plan: - Continue famotidine 20mg PO daily (9) Restless leg syndrome: Plan: - Continue pramipexole (10) Morbid obesity: Plan: Noted, likely an element of obesity hypoventilation. Plan: VTE Prophylaxis - Lovenox 40mg SQ BID (increased dose due to obesity) Admission and Anticipated Discharge Date Admission Date: May 05, 2021 Subjective Patient reports feeling fatigued. Review of Systems Review of Systems: All systems reviewed & are unremarkable except as noted in HPI & below Physical Exam Physical Exam: Constitutional: WD/WN, vitals as above Eyes: EOM intact bilaterally; no conjunctival abnormality ENMT: external ear and nose normal, oropharynx normal Neck: trachea midline, no thyromegaly normal visual inspection Respiratory: normal respiratory effort, lungs clear to auscultation no respiratory distress Cardiovascular: RRR, no murmur, no edema Gastrointestinal (Abdomen): Inspection/Auscultation: abdomen normal to inspection; abdomen not distended Musculoskeletal: no cyanosis or clubbing, extremities motor strength 5/5 Skin: no rashes, warm and dry Neurologic: moves all extremities and awake Psychiatric: Orientation: alert, oriented to person and cooperative Results & Data Results & Data ([facility]) Vital Signs (Past 12 Hours) Vital Signs Temp Pulse Pulse Pulse Pulse Resp Resp 05/08/21 21:24 36.8 C 76 20 05/08/21 15:47 36.8 C 71 16 05/08/21 13:52 95 H 71 77 20 05/08/21 11:00 77 18 Resp Resp BP Pulse Ox Pulse Ox Pulse Ox Pulse Ox 05/08/21 21:24 151/91 H 96 05/08/21 15:47 134/78 92 05/08/21 13:52 16 18 94 96 94 05/08/21 11:00 89 L PG Care Time/CCT Total # of Minutes Spent Total Time Spent with Patient: Total time spent is greater than 50% in coordination of care (as documented) at patient's floor/unit and/or counseling patient: Coding Level of Care Code 36568 Subseq Hosp Care Lvl 2 Diagnoses Pneumonia due to COVID-19 virus U07.1; J12.82 Hypoxia R09.02 Hypertension I10 Anxiety F41.9 Chronic obstructive pulmonary disease J44.9 Urinary incontinence R32 Hyperlipidemia E78.5 GERD (gastroesophageal reflux disease) K21.9 Restless leg syndrome G25.81 Morbid obesity E66.01 Time Spent (min) 25
[2021-05-09] MEDS: FENOFIBRATE NANOCRYSTALLIZED 48 MG TABLET PO SCH (08:01)
[2021-05-09] MEDS: dexAMETHasone 6 MG in SYRINGE 0 ML IV SCH (08:01)
[2021-05-09] MEDS: CHOLECALCIFEROL 1,000 UNITS 25 MCG TAB PO SCH (08:01)
[2021-05-09] MEDS: ENOXAPARIN INJ 40 MG/0.4 ML SYR SQ SCH (08:02)
[2021-05-09] MEDS: SENNA 8.6 MG TAB PO SCH (08:02)
[2021-05-09] MEDS: DULoxetine HCL 60 MG CAP PO SCH (08:02)
[2021-05-09] MEDS: ALBUT/IPRATROP 3MG/0.5MG NEB 3 ML VIAL NEB PRN (09:46)
[2021-05-09] MEDS: HYDROCODONE/ACETAMOPHEN 5/325MG TAB PO PRN (11:03)
--- NOTE | 2021-05-14 20:40 | Discharge Summary ---
Date of Service May 09, 2021 Admission HPI Per Admitting Provider Malika Hull is a 65 year old female with fever, chills and shortness of breath. She reports being unwell for the last 3 days with these symptoms. No known COVID-19 contacts. She is unvaccinated. She reports her brother of COVID-19 last year. Associated loss of taste and smell and poor appetite. She reports chest pain and abdominal pain while coughing but not outside these times. No diarrhea. In the ER she was hypoxic despite minimal CXR changes requiring 2LPM O2 to maintain sats > 90%. O2 sats drop to 84% on room air. Principal Diagnosis COVID 19 pneumonia Discharge Exam Constitutional: WD/WN, vitals as above Eyes: EOM intact bilaterally; no conjunctival abnormality ENMT: external ear and nose normal, oropharynx normal Neck: trachea midline, no thyromegaly normal visual inspection Respiratory: normal respiratory effort, lungs clear to auscultation no respiratory distress Cardiovascular: RRR, no murmur, no edema Gastrointestinal (Abdomen): Inspection/Auscultation: abdomen normal to inspection; abdomen not distended Musculoskeletal: no cyanosis or clubbing, extremities motor strength 5/5 Skin: no rashes, warm and dry Neurologic: moves all extremities and awake Psychiatric: Orientation: alert, oriented to person and cooperative Discharge Data Allergies Allergy/AdvReac Type Severity Reaction Status Date / Time diphenhydramine Allergy Intermediate SKIN Verified 05/05/21 16:48 IRRITATION hydroxychloroquine Allergy Intermediate SEVERE Verified 05/05/21 16:48 SKIN REACTION, HIVES methylprednisolone Allergy Intermediate SKIN Verified 05/05/21 16:48 IRRITATION neomycin Allergy Mild RASH Verified 05/05/21 16:48 Consultations 05/05/21 19:05 ED Decision to Admit Stat Hospital Course (1) Pneumonia due to COVID-19 virus: Unvaccinated. Initial symptoms on 05/03/2021. - Continue dexamethasone 6mg daily x 10 days (Last day: 05/14/2021) - Continue remdesivir - Supplemental O2 to keep SpO2 > 90% -> Presently stable on room air. Patient does not require supplemental oxygen at [facility]. will discharge. (2) Hypoxia: Prior usual O2 sats per EHR 93-97% Aim O2 sats > 90% (3) Hypertension: BP today is 150/85. - Continue metoprolol succinate 100mg PO daily (4) Anxiety: - Continue duloxetine 120mg PO daily (5) Chronic obstructive pulmonary disease: No acute exacerbation; however, she feels significantly better after treatments. - DuoNebs PRN (6) Urinary incontinence: - Continue Vesicare 5mg PO daily (7) Hyperlipidemia: - Continue lovastatin 20mg PO daily (8) GERD (gastroesophageal reflux disease): - Continue famotidine 20mg PO daily (9) Restless leg syndrome: - Continue pramipexole (10) Morbid obesity: Noted, likely an element of obesity hypoventilation. VTE Prophylaxis - Lovenox 40mg SQ BID (increased dose due to obesity) Total Time Total Time Spent Total Time Spent (In Minutes): 32 Discharge Plan Discharge Items Patient Disposition: Home - Self-Care Reason For Visit: COVID-19, HYPOXIA Discharge Diagnosis: Covid-19 pneumonia Activity: Resume your previous activity Non-emergency contact: Primary Care Provider Call non-emergency contact if: your symptoms worsen and your temperature is above 101 Follow-up/Referrals: Mica Orourke [Primary Care Provider] - 05/15/21 3:00 pm (TELEPHONE VISIT DUE TO + COVID) Diet: Regular Addtl Attending Provider Instructions: Ms. Hull, You were admitted to the hospital with Covid-19 which caused a pneumonia for you. Luckily, you did well on the medications that are used to treat it, and you are now well enough to go home. Fortunately, you do not even need any oxygen which is great news! Please take the remainder of the course of steroids which will help reduce inflammation in your lungs. You will take this once a day for 5 more day. Please isolate yourself until you are done with the steroid. You could still be contagious with Covid-19 for one more week. After that, you are unlikely to be shedding active virus and can return to work and contact with others. Pending Studies at Discharge: No Stand-Alone Forms: My [facility] [employer], Work/School Release, Smoking Cessation Medications and DC Order Prescriptions: New dexamethasone 6 mg tablet 6 mg PO DAILY Qty: 5 RF: 0 Continued solifenacin [Vesicare] 5 mg tablet 5 mg PO DAILY Qty: 90 RF: 3 acetaminophen [Tylenol] 325 mg Tablet 650 mg PO QID PRN (Reason: Fever Or Pain) RF: 0 pramipexole 0.5 mg tablet 0.5 mg PO HS RF: 0 lovastatin 20 mg tablet 20 mg PO HS RF: 0 duloxetine 60 mg capsule,delayed release(DR/EC) 120 mg PO QAM RF: 0 fenofibrate 54 mg tablet 54 mg PO QAM RF: 0 Combivent Respimat 20-100 mcg/actuation mist 1 puff INHALATION Q6H PRN (Reason: Shortness Of Breath) RF: 0 cholecalciferol (vitamin D3) [Vitamin D3] 25 mcg (1,000 unit) Tablet 50 mcg PO BID RF: 0 metoprolol succinate 100 mg tablet extended release 24 hr 100 mg PO HS RF: 0 famotidine 20 mg tablet 20 mg PO HS RF: 0 hydrocodone-acetaminophen 5-325 mg tablet 1 tab PO TID PRN (Reason: pain) RF: 0 ondansetron 4 mg tablet,disintegrating 0.4 mg translingual DAILY PRN (Reason: Nausea) RF: 0 Discharge Orders: Discharge Order (Routine); Ordered 05/09/21 Ordered By: Rios London Admission Data Admit Date/Time: 05/05/21 20:11 Attending Provider: Rios London Admit Provider: Hung Santiago Primary Care Provider: Mica Orourke Other Providers: Jude Mart Other Interventions: Discharge Summary Assessment (RN) Last Done: 05/09/21 13:14 Coding Level of Care Code D/C DAY MANAGEMENT >30 MINS Diagnoses Pneumonia due to COVID-19 virus U07.1; J12.82 Hypoxia R09.02 Hypertension I10 Anxiety F41.9 Chronic obstructive pulmonary disease J44.9 Urinary incontinence R32 Hyperlipidemia E78.5 GERD (gastroesophageal reflux disease) K21.9 Restless leg syndrome G25.81 Morbid obesity E66.01
== END 2021-05-09 18:08 | disposition home or self-care (01) | DRG 177 ==
LOC: ED 15:30 → SUATTDRO 20:11 → EDINP 20:11 → 3N 05-06 01:05

== ENCOUNTER 2021-07-27 23:10 | Inpatient (IN) ==
[2021-07-27] MEDS ORDERED: dexAMETHasone**PF** 10 MG/ML VIAL IV ONE (23:23)
[2021-07-27] MEDS ORDERED: ALBUTEROL HFA 8 GM INHALER INH ONE (23:23)
[2021-07-27] MEDS ORDERED: ACETAMINOPHEN 500 MG TAB PO STA (23:25)
[2021-07-27] MEDS ORDERED: SODIUM CHLORIDE 0.9% 1000ML 1,000 ML IV SCH (23:30)
[2021-07-27 23:49] LABS: Basophils # (auto) 0.02 K/uL (0-0.2); Basophils % (auto) 0.3 %; Eosinophils # (auto) 0.06 K/uL (0-0.5); Eosinophils % (auto) 0.9 %; Hematocrit (blood only) 41.1 % (37-47); Hemoglobin 12.8 g/dL (12.0-16.0); Immature Granulocytes # (auto) 0.02 K/uL (0.00-0.02); Immature Granulocytes % (auto) 0.3 %; Lymphocytes # (auto) 0.79 K/uL (1.2-3.4); Lymphocytes % (auto) 12.1 %; Mean Corpuscular Hemoglobin 28.6 pg (25-34); Mean Corpuscular Hgb Conc 31.1 g/dL (32-36); Mean Corpuscular Volume 91.7 fL (80-100); Mean Platelet Volume 9.6 fL (7.4-10.4); Monocytes # (auto) 0.78 K/uL (0.11-0.59); Monocytes % (auto) 11.9 %; Neutrophils # (auto) 4.88 K/uL (1.4-6.5); Neutrophils % (auto) 74.5 %; Platelet Count 225 K/uL (130-400); RDW Coefficient of Variation 14.7 % (11.5-14.5); RDW Standard Deviation 49.7 fL (36.4-46.3); Red Blood Count 4.48 M/uL (4.2-5.4); White Blood Count 6.55 K/uL (4.8-10.8)
[2021-07-27 23:59] LABS: Partial Thromboplastin Time 25.9 Seconds (21.0-31.0); Prothrombin Time 10.3 Seconds (9.0-12.0)
[2021-07-28 00:51] LABS: Appearance Urine Cloudy (Clear); Bacteria Urine Automated Negative (Negative); Bilirubin Urine Negative (Negative); Blood Urine Negative (Negative); Cast Urine Automated 0 /lpf (0-5); Color Urine Yellow; Glucose Urine UA Negative (Negative); Ketones Urine Negative (Negative); Leukocyte Esterase Urine Negative (Negative); Nitrite Urine Negative (Negative); Protein Urine Negative (Negative); RBC Urine Automated 0-4 /hpf (0-4); Specific Gravity Urine 1.021 (1.000-1.030); Urobilinogen Urine Negative (Negative); WBC Urine Automated 0 /hpf (0-5)
[2021-07-28 01:46] LABS: Adenovirus PCR Not Detected (NotDetected); Bordetella parapertussis PCR Not Detected (NotDetected); Bordetella pertussis PCR Not Detected (NotDetected); Chlamydia pneumoniae PCR Not Detected (NotDetected); Coronavirus 229E PCR Not Detected (NotDetected); Coronavirus CoV-2 (COVID19)PCR Not Detected (NotDetected); Coronavirus HKU1 PCR Not Detected (NotDetected); Coronavirus NL63 PCR Not Detected (NotDetected); Coronavirus OC43PCR Not Detected (NotDetected); Human Metapneumovirus PCR Not Detected (NotDetected); Influenza B PCR Not Detected (NotDetected); Mycoplasma pneumoniae PCR Not Detected (NotDetected); Parainfluenza Virus 1 PCR Not Detected (NotDetected); Parainfluenza Virus 2 PCR Not Detected (NotDetected); Parainfluenza Virus 3 PCR Not Detected (NotDetected); Parainfluenza Virus 4 PCR Not Detected (NotDetected); Respiratory Syncytial VirusPCR Not Detected (NotDetected); Rhinovirus/Enterovirus PCR Not Detected (NotDetected)
--- NOTE | 2021-07-28 01:49 | Emergency Department Note ---
History of Present Illness General Chief complaint: Dizziness Stated complaint: DIZZINESS,SHORT OF BREATH,NAUSEA,VOMITING Time Seen by Provider: 07/27/21 23:18 History of Present Illness Maximum Pain Intensity: 7 This 65-year-old presents to the ER complaining of cough, congestion, fever, chills and dyspnea Location: Generalized Quality: Hard to breathe Severity: Moderate Duration: Past few days Timing: Started few days ago Context: Symptoms got worse and patient called EMS Modifying factors: better with oxygen; worse with activity Patient is unvaccinated for COVID and influenza. She had Covid last year. She states this feels like her COPD also. Patient complains of cough, congestion, dyspnea and generalized illness with fever and chills. Patient denies abdominal pain, leg pain or swelling, headache, neck stiffness. Home Medications Medication Instructions Recorded Confirmed Type cholecalciferol (vitamin D3) 25 50 mcg PO BID 11/17/19 07/27/21 History mcg (1,000 unit) tablet (Vitamin D3) duloxetine 60 mg capsule,delayed 120 mg PO QAM 11/17/19 07/27/21 History release fenofibrate 54 mg tablet 54 mg PO QAM 11/17/19 07/27/21 History ipratropium 20 mcg-albuterol 100 1 puff INHALATION Q6H PRN 11/17/19 07/27/21 History mcg/actuation mist for inhalation (Combivent Respimat) lovastatin 20 mg tablet 20 mg PO HS 11/17/19 07/27/21 History pramipexole 0.5 mg tablet 0.5 mg PO HS 11/17/19 07/27/21 History acetaminophen 325 mg tablet 650 mg PO QID PRN 01/24/20 07/27/21 History (Tylenol) solifenacin 5 mg tablet (Vesicare) 5 mg PO DAILY #90 tab 10/14/20 07/27/21 Rx famotidine 20 mg tablet 20 mg PO HS 05/05/21 07/27/21 History hydrocodone 5 mg-acetaminophen 325 1 tab PO TID PRN 05/05/21 07/27/21 History mg tablet metoprolol succinate 100 mg 100 mg PO HS 05/05/21 07/27/21 History tablet,extended release 24 hr ondansetron 4 mg disintegrating 0.4 mg TRANSLINGUAL DAILY PRN 05/05/21 07/27/21 History tablet celecoxib 100 mg capsule 100 mg PO DAILY 07/27/21 07/27/21 History Allergies Allergy/AdvReac Type Severity Reaction Status Date / Time diphenhydramine Allergy Intermediate SKIN Verified 07/27/21 23:31 IRRITATION hydroxychloroquine Allergy Intermediate SEVERE Verified 07/27/21 23:31 SKIN REACTION, HIVES methylprednisolone Allergy Intermediate SKIN Verified 07/27/21 23:31 IRRITATION neomycin Allergy Mild RASH Verified 07/27/21 23:31 Past Med/Surg History Medical History Anxiety Chronic obstructive pulmonary disease Degenerative disc disease Fibromyalgia GERD (gastroesophageal reflux disease) History of anemia Hx of gout Hyperlipidemia Hypertension IBS (irritable bowel syndrome) Left ureteral stone Morbid obesity Osteoarthritis Pinched nerve BACK AREA Restless leg syndrome Surgical History History of cholecystectomy History of colonoscopy History of endometrial ablation History of open reduction and internal fixation (ORIF) procedure LEFT History of tooth extraction + GUM SURGERY History of total knee replacement RT Hx of total hysterectomy Nausea and vomiting after administration of anesthetic agent Family History Sister Family history of diabetes mellitus Other No family history of adverse response to anesthesia Social History Smoking Status: Former smoker Tobacco Type: Cigarettes Cigarettes Per Day: 10; Second Hand Exposure: No; Hx Alcohol Use: No Hx Substance Use: No Preferred Language: Romanian Communication Ability: Effective Store Specialist Required: No Beliefs That Will Affect Care: None Current Living Situation: Spouse Feels Safe at Home: Yes and No Assistive Devices: None Review of Systems A total of 10 systems reviewed and were otherwise negative Physical Exam Vital Signs Vital Signs - 24 hr 07/27/21 23:15 07/28/21 01:45 Temperature 37.3 C Temperature Source Oral Pulse Rate 102 H 96 H Respiratory Rate 26 H Blood Pressure 147/82 H 169/92 H Blood Pressure Mean 103 117 Pulse Oximetry 94 94 Oxygen Delivery Method Room Air Nasal Cannula Oxygen Flow Rate 2 Sepsis Recent Fever Within 48 Hours Yes Sepsis New/Unexplained Change in Mental Status No Sepsis Action Taken by Nursing Physician Notified VITALS: Vitals are noted on the nurse's note and reviewed by myself. Vital signs low-grade fever. GENERAL: White female coughing working to breathe, in moderate acute distress, SKIN: The skin was without rashes, erythema, edema, or bruising. There is no tenting of the skin. Capillary reflex less than 2 seconds. HEAD: Normocephalic atraumatic. EARS: External auditory canals clear, EYES: Pupils equal round and reactive to light and accommodation. Conjunctivae without injection, sclerae without icterus. Extraocular movements intact. NOSE: Patent, turbinates without inflammation or discharge. MOUTH: Mucous membranes moist. Pharynx without erythema or exudate. Uvula midline. Airway patent. Tongue does not deviate. NECK: Supple without nuchal rigidity. No lymphadenopathy. No thyromegaly. Cervical spine is nontender. No JVD. HEART: Regular rate and rhythm LUNGS: Mild diffuse inspiratory and end expiratory wheezes, No retractions or accessory muscle use. ABDOMEN: Positive bowel sounds x 4. Normal tympanic percussion. Soft, nontender, without masses or organomegaly. Shelley sign negative. No guarding or rebound tenderness. No CVA tenderness MUSCULOSKELETAL: No muscle atrophy, erythema, or edema noted. NEURO: Patient was alert and oriented to person place and time. Normal sensation to light and sharp touch. No focal neurological deficits. Course Administered Medications Discontinued Medications Acetaminophen (Acetaminophen 500 Mg Tab) 1,000 mg PO NOW STA Stop: 07/27/21 23:26 Last Admin: 07/28/21 01:02 Dose: 1,000 mg Documented by: [id number] Albuterol (Albuterol Hfa 8 Gm Inhaler) 2 puffs INH NOW ONE Stop: 07/27/21 23:24 Last Admin: 07/28/21 00:39 Dose: 2 puffs Documented by: [id number] Albuterol (Albut/Ipratrop 3mg/0.5mg Neb 3 Ml Vial) 3 ml NEB NOW STA; Protocol Stop: 07/28/21 02:39 Last Admin: 07/28/21 02:48 Dose: 3 ml Documented by: [id number] Dexamethasone Sodium Phosphate (DexamethasonePf 10 Mg/Ml Vial) 10 mg IV NOW ONE Stop: 07/27/21 23:24 Last Admin: 07/28/21 00:44 Dose: 10 mg Documented by: [id number] Sodium Chloride (Nss 1000ml) 1,000 mls @ 999 mls/hr IV .Q1H1M DENIA Stop: 07/28/21 00:30 Last Infusion: 07/28/21 02:27 Dose: 0 mls/hr Documented by: [id number] Admin: 07/28/21 01:07 Dose: 999 mls/hr Documented by: [id number] Oseltamivir Phosphate (Oseltamivir Phosphate 75 Mg Cap) 75 mg PO NOW STA; Protocol Stop: 07/28/21 02:13 Last Admin: 07/28/21 02:39 Dose: 75 mg Documented by: [id number] Admin: 07/28/21 02:39 Dose: 75 mg Documented by: [id number] Pramipexole Dihydrochloride (Pramipexole Dihydrochlo 0.5 Mg Tab) 0.5 mg PO NOW STA Stop: 07/28/21 02:27 Last Admin: 07/28/21 03:02 Dose: 0.5 mg Documented by: [id number] Medical Decision Making Medical Records Attestation: I reviewed the patient's medical records. Home Medications Current Medication List: was personally reviewed by me Laboratory Data Attestation: I reviewed the patient's lab results. Result diagrams: 07/27/21 20:40 07/28/21 02:13 Lab Results 07/27/21 07/27/21 07/28/21 Range/Units 20:40 20:40 00:33 WBC 6.55 (4.8-10.8) K/uL RBC 4.48 (4.2-5.4) M/uL Hgb 12.8 (12.0-16.0) g/dL Hct 41.1 (37-47) % MCV 91.7 (80-100) fL MCH 28.6 (25-34) pg MCHC 31.1 L (32-36) g/dL RDW Std Deviation 49.7 H (36.4-46.3) fL RDW Coeff of Ana 14.7 H (11.5-14.5) % Plt Count 225 (130-400) K/uL MPV 9.6 (7.4-10.4) fL Immature Gran % (Auto) 0.3 % Neut % (Auto) 74.5 % Lymph % (Auto) 12.1 % [place] % (Auto) 11.9 % Eos % (Auto) 0.9 % Baso % (Auto) 0.3 % Neut # (Auto) 4.88 (1.4-6.5) K/uL Lymph # (Auto) 0.79 L (1.2-3.4) K/uL [place] # (Auto) 0.78 H (0.11-0.59) K/uL Eos # (Auto) 0.06 (0-0.5) K/uL Baso # (Auto) 0.02 (0-0.2) K/uL Immature Gran # (Auto) 0.02 (0.00-0.02) K/uL PT 10.3 (9.0-12.0) Seconds INR 1.0 (0.9-1.1) APTT 25.9 (21.0-31.0) Seconds PTT Ratio 1.0 Sodium (136-145) mmol/L Potassium (3.5-5.1) mmol/L Chloride (98-107) mmol/L Carbon Dioxide (21-32) mmol/L Anion Gap (3-11) BUN (6-23) mg/dl Creatinine (0.6-1.2) mg/dl Est Cr Clr Drug Dosing ml/min Est GFR ( Amer) ml/min Est GFR (Non-Af Amer) ml/min BUN/Creatinine Ratio (10-20) Glucose (70-99(Fasting)) mg/dl Lactate (0.4-2.0) mmol/L Calcium (8.5-10.1) mg/dl Magnesium (1.7-2.4) mg/dl Total Bilirubin (0.2-1.0) mg/dl AST (13-39) U/L ALT (7-52) U/L Alkaline Phosphatase (34-104) U/L Troponin I (0-0.04) ng/ml Total Protein (6.0-8.3) gm/dl Albumin (3.4-5.0) gm/dl Globulin (2.5-4.0) gm/dl Albumin/Globulin Ratio (0.9-2) Procalcitonin (0-0.5) ng/ml Urine Color Urine Appearance (Clear) Urine pH (4.5-7.5) Ur Specific [place] (1.000-1.030) Urine Protein (Negative) Urine Glucose (UA) (Negative) Urine Ketones (Negative) Urine Blood (Negative) Urine Nitrite (Negative) Urine Bilirubin (Negative) Urine Urobilinogen (Negative) Ur Leukocyte Esterase (Negative) Urine WBC (Auto) (0-5) /hpf Urine RBC (Auto) (0-4) /hpf U Hyaline Cast (Auto) (0-5) /lpf U Epithel Cells (Auto) (0-5) /lpf Urine Bacteria (Auto) (Negative) Adenovirus (PCR) Not Detected (NotDetected) B. pertussis DNA (PCR) Not Detected (NotDetected) B.parapertussis DNA PCR Not Detected (NotDetected) C. pneumoniae DNA (PCR) Not Detected (NotDetected) Coronavirus OC43 (PCR) Not Detected (NotDetected) Coronavirus HKU1 (PCR) Not Detected (NotDetected) Coronavirus 229E (PCR) Not Detected (NotDetected) SARS-CoV-2 (PCR) Not Detected (NotDetected) Coronavirus NL63 (PCR) Not Detected (NotDetected) Human Metapneumovir PCR Not Detected (NotDetected) Influenza A (H3) PCR DETECTED A* (NotDetected) Influenza Type B (PCR) Not Detected (NotDetected) M. pneumoniae (PCR) Not Detected (NotDetected) Parainfluenza 1 (PCR) Not Detected (NotDetected) Parainfluenza 2 (PCR) Not Detected (NotDetected) Parainfluenza 3 (PCR) Not Detected (NotDetected) Parainfluenza 4 (PCR) Not Detected (NotDetected) RSV (PCR) Not Detected (NotDetected) Entero/Rhino (PCR) Not Detected (NotDetected) 07/28/21 07/28/21 07/28/21 Range/Units 01:16 02:13 02:13 WBC (4.8-10.8) K/uL RBC (4.2-5.4) M/uL Hgb (12.0-16.0) g/dL Hct (37-47) % MCV (80-100) fL MCH (25-34) pg MCHC (32-36) g/dL RDW Std Deviation (36.4-46.3) fL RDW Coeff of Ana (11.5-14.5) % Plt Count (130-400) K/uL MPV (7.4-10.4) fL Immature Gran % (Auto) % Neut % (Auto) % Lymph % (Auto) % [place] % (Auto) % Eos % (Auto) % Baso % (Auto) % Neut # (Auto) (1.4-6.5) K/uL Lymph # (Auto) (1.2-3.4) K/uL [place] # (Auto) (0.11-0.59) K/uL Eos # (Auto) (0-0.5) K/uL Baso # (Auto) (0-0.2) K/uL Immature Gran # (Auto) (0.00-0.02) K/uL PT (9.0-12.0) Seconds INR (0.9-1.1) APTT (21.0-31.0) Seconds PTT Ratio Sodium 137 (136-145) mmol/L Potassium 3.9 (3.5-5.1) mmol/L Chloride 106 (98-107) mmol/L Carbon Dioxide 25 (21-32) mmol/L Anion Gap 6 (3-11) BUN 16 (6-23) mg/dl Creatinine 0.66 (0.6-1.2) mg/dl Est Cr Clr Drug Dosing 101.6 ml/min Est GFR ( Amer) 107.4 ml/min Est GFR (Non-Af Amer) 92.7 ml/min BUN/Creatinine Ratio 24.2 H (10-20) Glucose 113 H (70-99(Fasting)) mg/dl Lactate 0.6 (0.4-2.0) mmol/L Calcium 9.0 (8.5-10.1) mg/dl Magnesium 1.8 (1.7-2.4) mg/dl Total Bilirubin 0.4 (0.2-1.0) mg/dl AST 13 (13-39) U/L ALT 11 (7-52) U/L Alkaline Phosphatase 58 (34-104) U/L Troponin I < 0.03 (0-0.04) ng/ml Total Protein 6.5 (6.0-8.3) gm/dl Albumin 3.8 (3.4-5.0) gm/dl Globulin 2.7 (2.5-4.0) gm/dl Albumin/Globulin Ratio 1.4 (0.9-2) Procalcitonin < 0.05 (0-0.5) ng/ml Urine Color Urine Appearance (Clear) Urine pH (4.5-7.5) Ur Specific [place] (1.000-1.030) Urine Protein (Negative) Urine Glucose (UA) (Negative) Urine Ketones (Negative) Urine Blood (Negative) Urine Nitrite (Negative) Urine Bilirubin (Negative) Urine Urobilinogen (Negative) Ur Leukocyte Esterase (Negative) Urine WBC (Auto) (0-5) /hpf Urine RBC (Auto) (0-4) /hpf U Hyaline Cast (Auto) (0-5) /lpf U Epithel Cells (Auto) (0-5) /lpf Urine Bacteria (Auto) (Negative) Adenovirus (PCR) (NotDetected) B. pertussis DNA (PCR) (NotDetected) B.parapertussis DNA PCR (NotDetected) C. pneumoniae DNA (PCR) (NotDetected) Coronavirus OC43 (PCR) (NotDetected) Coronavirus HKU1 (PCR) (NotDetected) Coronavirus 229E (PCR) (NotDetected) SARS-CoV-2 (PCR) (NotDetected) Coronavirus NL63 (PCR) (NotDetected) Human Metapneumovir PCR (NotDetected) Influenza A (H3) PCR (NotDetected) Influenza Type B (PCR) (NotDetected) M. pneumoniae (PCR) (NotDetected) Parainfluenza 1 (PCR) (NotDetected) Parainfluenza 2 (PCR) (NotDetected) Parainfluenza 3 (PCR) (NotDetected) Parainfluenza 4 (PCR) (NotDetected) RSV (PCR) (NotDetected) Entero/Rhino (PCR) (NotDetected) 07/28/21 07/28/21 07/28/21 Range/Units Unknown Unknown Unknown WBC (4.8-10.8) K/uL RBC (4.2-5.4) M/uL Hgb (12.0-16.0) g/dL Hct (37-47) % MCV (80-100) fL MCH (25-34) pg MCHC (32-36) g/dL RDW Std Deviation (36.4-46.3) fL RDW Coeff of Ana (11.5-14.5) % Plt Count (130-400) K/uL MPV (7.4-10.4) fL Immature Gran % (Auto) % Neut % (Auto) % Lymph % (Auto) % [place] % (Auto) % Eos % (Auto) % Baso % (Auto) % Neut # (Auto) (1.4-6.5) K/uL Lymph # (Auto) (1.2-3.4) K/uL [place] # (Auto) (0.11-0.59) K/uL Eos # (Auto) (0-0.5) K/uL Baso # (Auto) (0-0.2) K/uL Immature Gran # (Auto) (0.00-0.02) K/uL PT (9.0-12.0) Seconds INR (0.9-1.1) APTT (21.0-31.0) Seconds PTT Ratio Sodium Cancelled (136-145) mmol/L Potassium Cancelled (3.5-5.1) mmol/L Chloride Cancelled (98-107) mmol/L Carbon Dioxide Cancelled (21-32) mmol/L Anion Gap Cancelled (3-11) BUN Cancelled (6-23) mg/dl Creatinine Cancelled (0.6-1.2) mg/dl Est Cr Clr Drug Dosing Cancelled ml/min Est GFR ( Amer) Cancelled ml/min Est GFR (Non-Af Amer) Cancelled ml/min BUN/Creatinine Ratio Cancelled (10-20) Glucose Cancelled (70-99(Fasting)) mg/dl Lactate (0.4-2.0) mmol/L Calcium Cancelled (8.5-10.1) mg/dl Magnesium Cancelled (1.7-2.4) mg/dl Total Bilirubin Cancelled (0.2-1.0) mg/dl AST Cancelled (13-39) U/L ALT Cancelled (7-52) U/L Alkaline Phosphatase Cancelled (34-104) U/L Troponin I Cancelled (0-0.04) ng/ml Total Protein Cancelled (6.0-8.3) gm/dl Albumin Cancelled (3.4-5.0) gm/dl Globulin Cancelled (2.5-4.0) gm/dl Albumin/Globulin Ratio Cancelled (0.9-2) Procalcitonin Cancelled (0-0.5) ng/ml Urine Color Yellow Urine Appearance Cloudy A (Clear) Urine pH 7.0 (4.5-7.5) Ur Specific [place] 1.021 (1.000-1.030) Urine Protein Negative (Negative) Urine Glucose (UA) Negative (Negative) Urine Ketones Negative (Negative) Urine Blood Negative (Negative) Urine Nitrite Negative (Negative) Urine Bilirubin Negative (Negative) Urine Urobilinogen Negative (Negative) Ur Leukocyte Esterase Negative (Negative) Urine WBC (Auto) 0 (0-5) /hpf Urine RBC (Auto) 0-4 (0-4) /hpf U Hyaline Cast (Auto) 0 (0-5) /lpf U Epithel Cells (Auto) 5-10 H (0-5) /lpf Urine Bacteria (Auto) Negative (Negative) Adenovirus (PCR) (NotDetected) B. pertussis DNA (PCR) (NotDetected) B.parapertussis DNA PCR (NotDetected) C. pneumoniae DNA (PCR) (NotDetected) Coronavirus OC43 (PCR) (NotDetected) Coronavirus HKU1 (PCR) (NotDetected) Coronavirus 229E (PCR) (NotDetected) SARS-CoV-2 (PCR) (NotDetected) Coronavirus NL63 (PCR) (NotDetected) Human Metapneumovir PCR (NotDetected) Influenza A (H3) PCR (NotDetected) Influenza Type B (PCR) (NotDetected) M. pneumoniae (PCR) (NotDetected) Parainfluenza 1 (PCR) (NotDetected) Parainfluenza 2 (PCR) (NotDetected) Parainfluenza 3 (PCR) (NotDetected) Parainfluenza 4 (PCR) (NotDetected) RSV (PCR) (NotDetected) Entero/Rhino (PCR) (NotDetected) Imaging Data Attestation: I personally reviewed and interpreted this imaging study as follows: MDM Narrative Prior records/ancillary studies reviewed. Triage Nursing notes reviewed. Additional history obtained from nursing. The patient's history was concerning for fever. Differential diagnosis: Etiologies such as viral syndrome, otitis, pharyngitis, pneumonia, influenza, meningitis, urinary tract infection, sepsis, bacteremia, as well as others were entertained. Physical examination: As above ER treatment provided: An order was placed for continuous cardiac monitoring. The monitor shows a rate of 60-1 30 with a sinus rhythm. Decadron, albuterol, Tamiflu, nebulizer On reassessment the patient felt better. Diagnostics interpreted by me: ECG: Ordered for dyspnea EKG: Normal sinus, normal intervals, no acute ST-T wave changes. Impression normal sinus interpreted by myself I think arrhythmia is unlikely. EKG shows normal sinus rhythm with no interval abnormalities such as QT prolongation or WPW. There are no findings to suggest Brugada syndrome. Cardiac monitoring in the emergency department reveals no tachycardic or bradycardic dysrhythmia. Hypertrophic cardiomyopathy was consid ered but there are no clear historical elements pointing toward this. EKG is not suggestive. The QRS voltage is not extremely large and there are no suggestive Q waves. The labs revealed + flu A Pending blood cultures Imaging studies: Chest x-ray with mild pulmonary congestion similar to prior from interpretation Consultation: A consultation was placed with hospitalist. The case was discussed and diagnostics were reviewed. The patient was evaluated in the ER for further treatment. This appears to be consistent with influenza A. Patient still short of breath. She still was on oxygen. She is in agreement to treatment plan admission. Medicine was consulted. She was given Tamiflu. By the evaluation outlined above emergent etiologies such as otitis, pharyngitis, meningitis, urinary tract infection, sepsis, bacteremia, as well as others were deemed relatively unlikely. The pt informed about the findings as listed above. All questions were answered and pleased with the treatment. The chart was completed utilizing [employer] voice recognition software. Grammatical errors, random word insertions, pronoun errors, and incomplete sentences are an occassional consequence of this system due to software limitations, ambient noise, and hardware issues. Any formal questions or concerns about the content, text, or information contained within the body of this dictation should be directly addressed to the physician commercial real estate assistant for clarification. Impression & Plan Influenza A Discharge Plan Visit Data Chief Complaint: Dizziness Stated Complaint: DIZZINESS,SHORT OF BREATH,NAUSEA,VOMITING ED Provider: Saumya Real ED Midlevel Provider: Yary Ordonez Discharge Problem: Influenza A Patient Disposition: Being Evaluated by Hospitalist Condition: Fair Forms Stand Alone Forms: [facility] Prescriptions Prescriptions: No Action solifenacin [Vesicare] 5 mg tablet 5 mg PO DAILY Qty: 90 RF: 3 acetaminophen [Tylenol] 325 mg Tablet 650 mg PO QID PRN (Reason: Fever Or Pain) RF: 0 pramipexole 0.5 mg tablet 0.5 mg PO HS RF: 0 lovastatin 20 mg tablet 20 mg PO HS RF: 0 duloxetine 60 mg capsule,delayed release(DR/EC) 120 mg PO QAM RF: 0 fenofibrate 54 mg tablet 54 mg PO QAM RF: 0 Combivent Respimat 20-100 mcg/actuation mist 1 puff INHALATION Q6H PRN (Reason: Shortness Of Breath) RF: 0 cholecalciferol (vitamin D3) [Vitamin D3] 25 mcg (1,000 unit) Tablet 50 mcg PO BID RF: 0 metoprolol succinate 100 mg tablet extended release 24 hr 100 mg PO HS RF: 0 famotidine 20 mg tablet 20 mg PO HS RF: 0 hydrocodone-acetaminophen 5-325 mg tablet 1 tab PO TID PRN (Reason: pain) RF: 0 ondansetron 4 mg tablet,disintegrating 0.4 mg translingual DAILY PRN (Reason: Nausea) RF: 0 celecoxib 100 mg capsule 100 mg PO DAILY RF: 0 Referrals Referrals: Mica Orourke [Primary Care Provider] -
[2021-07-28 02:09] LABS: Influenza A (H3) PCR DETECTED (NotDetected)
[2021-07-28] MEDS ORDERED: PRAMIPEXOLE DIHYDROCHLO 0.5 MG TAB PO STA (02:26)
[2021-07-28] MEDS ORDERED: ALBUT/IPRATROP 3MG/0.5MG NEB 3 ML VIAL NEB STA (02:38)
[2021-07-28] MEDS: OSELTAMIVIR PHOSPHATE 75 MG CAP PO STA (02:39)
[2021-07-28 02:46] LABS: Troponin I < 0.03 ng/ml (0-0.04)
[2021-07-28 02:48] LABS: Alanine Aminotransferase 11 U/L (7-52); Albumin Globulin Ratio 1.4 (0.9-2); Albumin Level 3.8 gm/dl (3.4-5.0); Alkaline Phosphatase 58 U/L (34-104); Anion Gap 6 (3-11); Aspartate Aminotransferase 13 U/L (13-39); BUN Creatinine Ratio 24.2 (10-20); Bilirubin,Total 0.4 mg/dl (0.2-1.0); Blood Urea Nitrogen 16 mg/dl (6-23); Carbon Dioxide 25 mmol/L (21-32); Chloride 106 mmol/L (98-107); Creatinine Clr Calc Pharmacy 101.6 ml/min; Est GFR (African American) 107.4 ml/min; Est GFR (Non-African American) 92.7 ml/min; Globulin 2.7 gm/dl (2.5-4.0); Glucose 113 mg/dl (70-99(Fasting)); Magnesium 1.8 mg/dl (1.7-2.4); Potassium 3.9 mmol/L (3.5-5.1); Sodium 137 mmol/L (136-145); Total Protein 6.5 gm/dl (6.0-8.3)
[2021-07-28] MEDS ORDERED: ONDANSETRON INJ 2 MG/ML 2 ML VIAL IV PRN (06:48)
[2021-07-28] MEDS ORDERED: ONDANSETRON 4 MG OD TAB PO PRN (06:48)
[2021-07-28] MEDS ORDERED: IPRATROPIUM BROMIDE/ALBUTEROL respimat INH INH PRN (06:48)
[2021-07-28] MEDS ORDERED: ACETAMINOPHEN 325 MG TAB PO PRN (06:48)
[2021-07-28] MEDS ORDERED: D5W AND NSS 1,000 ML IV SCH (07:00)
[2021-07-28] MEDS ORDERED: IPRATROPIUM BROMIDE HFA INHALER INH PRN (07:00)
--- NOTE | 2021-07-28 07:55 | XRay Report ---
XR chest 1V portable CLINICAL HISTORY: SEPSIS. Evaluate cardiopulmonary status COMPARISON STUDY: 05/05/2021 TECHNIQUE: 1 view of the chest FINDINGS: Single frontal view of the chest demonstrates the cardiomediastinal silhouette to be within normal li mits. There is a decreased inspiratory effort with elevation of the hemidiaphragms and crowding of th e bronchovascular markings at the lung bases and centrally. The lungs are clear of alveolar opacities . There is no evidence for pleural effusion. There is no evidence for vascular congestion. There is n o acute osseous pathology. IMPRESSION: 1. Compared to the previous examination, there is a decreased inspiratory effort with otherwise no ac nulato chest disease. ACT 112: Negative or not required by law. Electronically signed by: Hay Garcia M.D. 07/28/2021 7:54 AM
--- NOTE | 2021-07-28 08:29 | History and Physical Report ---
DATE OF ADMISSION: 07/28/2021. HISTORY OF PRESENT ILLNESS: A 65-year-old female with past medical history significant for COPD, obesity, COSTA, hyperlipidemia, prediabetes, fibromyalgia, osteoarthritis, restless legs syndrome, panic disorder, who presents with fever, chills, cough, shortness of breath, headache, nausea, vomiting, vomited a couple of times. The patient had COVID in April. She thought this is an COVID and came here and she was found to be flu positive. Patient is saturating okay on 2 liters. Somewhat tachycardic. Denies any chest pain. Has some headache, no blurred visions, no runny nose or sore throat. Appetite is down. She has alternating diarrhea and constipation from irritable bowel syndrome. Peeing a lot, no swelling in the legs . Hemodynamically stable. ALLERGIES: DIPHENHYDRAMINE, HYDROXYCHLOROQUINE, METHYLPREDNISONE, NEOMYCIN. PAST MEDICAL HISTORY: As mentioned above. PAST SURGICAL HISTORY: Right knee arthroplasty, colonoscopy, right knee arthroscopy, laparoscopic cholecystectomy, ligation of oviducts, cholecystectomy, total abdominal hysterectomy with removal of tubes. MEDICATIONS: The patient is on Tylenol 650 mg p.o. q.i.d. p.r.n., celecoxib 100 mg p.o. daily, vitamin D 50 mcg p.o. b.i.d., Combivent Respimat 1 puff inhalation q. 6 hours p.r.n., duloxetine 120 mg p.o. a.m., famotidine 20 mg p.o. at bedtime, fenofibrate 54 mg p.o. a.m., hydrocodone/acetaminophen 1 tablet p.o. t.i.d. p.r.n., lovastatin 20 mg p.o. at bedtime, metoprolol succinate 100 mg p.o. at bedtime, Zofran 0.4 mg sublingual daily p.r.n., pramipexole 0.5 mg p.o. at bedtime, solifenacin 5 mg p.o. daily. FAMILY HISTORY: Significant for father had CAD, mother had CAD, father had abdominal aortic aneurysm. SOCIAL HISTORY: , former smoker, quit in 2018, smoked half pack a day for 22 years. Alcohol several times a year. No drug use. REVIEW OF SYSTEMS: As per HPI. Rest of review of systems is negative. PHYSICAL EXAMINATION: GENERAL: The patient is of moderate build, not in acute distress. VITAL SIGNS: Temperature 37.3, pulse 96, respiratory rate 20, blood pressure 169/92, oxygen 95% on 2 liters. HEENT: Pupils equal, round and reactive to light. Oral mucosa moist. NECK: No JVD. No neck masses. CARDIOVASCULAR: S1 and S2 heard. Regular rate and rhythm. No murmur, no gallop. RESPIRATORY SYSTEM: Normal AP diameter. No accessory muscle use. No wheezing, no crackles. ABDOMEN: Soft, bowel sounds present, nontender, no distention. CENTRAL NERVOUS SYSTEM: Cranial nerves II-XII grossly intact, nonfocal. EXTREMITIES: Trace pedal edema present, no erythema seen. LABORATORY DATA: WBC 6.5, hemoglobin 12.8, hematocrit 41.1, platelets 225. PT 10.3, INR 1, APTT 25.9. Sodium 137, potassium 3.9, chloride 106, bicarbonate 25, BUN 16, creatinine 0.6, serum glucose 113. Lactate 0.6, calcium 9, magnesium 1.8, total bilirubin 0.4, AST 13, ALT 11, alkaline phosphatase 58. Troponin I less than 0.03. Procalcitonin less than 0.05. Urinalysis cloudy. BioFire positive for influenza A, negative for RSV and SARS-CoV-2 PCR. IMAGING DATA: Chest x-ray, no acute findings. ASSESSMENT AND PLAN: This is a 65-year-old female who presents with a fever, cough, shortness of breath, nausea and vomiting and presently having Influenza A. 1. Influenza A symptoms of fever, chills, nausea, vomiting, cough, and shortness of breath, saturating okay on 2 liters. Chest x-ray looks okay. Supportive care with fluids. Tylenol p.r.n. Continue Tamiflu. . Observe in medical floor. 2. History of COVID in 04/2021. Currently, COVID is negative. 3. History of depression. Continue with duloxetine. 4. Hyperlipidemia. Continue fenofibrate, lovastatin. 5. Hypertension on metoprolol. Monitor the blood pressure. 6. Gastroesophageal reflux disease, on famotidine. 7. Restless legs syndrome, on pramipexole. 8. Deep venous thrombosis prophylaxis: Lovenox. DISPOSITION: Closely monitor in the observing medical floor. Expect to discharge home and follow with family doctor. Job ID: [id number]
[2021-07-28] MEDS: CHOLECALCIFEROL 1,000 UNITS 25 MCG TAB PO SCH (09:56)
[2021-07-28] MEDS: ENOXAPARIN INJ 40 MG/0.4 ML SYR SQ SCH (09:56)
[2021-07-28] MEDS: DULoxetine HCL 60 MG CAP PO SCH (09:56)
[2021-07-28] MEDS: VESICARE: ORDER AWAITING ACTION SCH ×2 (09:58→17:57)
[2021-07-28] MEDS: FENOFIBRATE NANOCRYSTALLIZED 48 MG TABLET PO SCH (09:58)
[2021-07-28] MEDS: OSELTAMIVIR PHOSPHATE 75 MG CAP PO SCH ×2 (10:00→22:13)
[2021-07-28] MEDS: IPRATROPIUM BROMIDE NEB SOLN 0.02% 2.5 ML VIAL INH SCH ×3 (10:28→20:05)
[2021-07-28] MEDS: LEVALBUTEROL 1.25MG/0.5ML NEB INH SCH ×3 (10:28→20:05)
[2021-07-28] MEDS: HYDROCODONE/ACETAMOPHEN 5/325MG TAB PO PRN ×2 (12:53→22:19)
[2021-07-28] MEDS ORDERED: XOPENEX/ATROVENT 1.25mg/0.5MG NEB COMBO NEB SCH (13:00)
--- NOTE | 2021-07-28 15:28 | Electrocardiogram Report ---
Test Reason : Blood Pressure : / mmHG Vent. Rate : 088 BPM Atrial Rate : 088 BPM P-R Int : 178 ms QRS Dur : 086 ms QT Int : 368 ms P-R-T Axes : 060 002 047 degrees QTc Int : 445 ms Normal sinus rhythm Normal ECG When compared with ECG of 05-MAY-2021 16:09, No significant change was found Confirmed by Ramon Dumont ([id number]) on 07/28/2021 3:28:25 PM Referred By: REFERRED SELF Confirmed By:Ramon Dumont
--- NOTE | 2021-07-28 21:23 | Ultrasound Report ---
BILATERAL LOWER EXTREMITY VENOUS DOPPLER HISTORY: Acute pain and swelling of the lower legs leg edema, pain, r/o dvt COMPARISON STUDY: Duplex Doppler study 05/09/2012 FINDINGS: There is normal compressibility, flow, and augmentation within the bilateral lower extremit y deep venous systems. IMPRESSION: No DVT within the right or left lower extremity. ACT 112: Negative or not required by law. Electronically signed by: Kwabena Deutsch M.D. 07/28/2021 9:22 PM
[2021-07-28] MEDS: FAMOTIDINE 20 MG TAB PO SCH (22:13)
[2021-07-28] MEDS: LOVASTATIN 20 MG TAB PO SCH (22:14)
[2021-07-28] MEDS: PRAMIPEXOLE DIHYDROCHLO 0.5 MG TAB PO SCH (22:14)
[2021-07-28] MEDS: METOPROLOL SUCC 50MG EXT REL TAB PO SCH (22:14)
[2021-07-29] MEDS: VESICARE: ORDER AWAITING ACTION SCH ×4 (00:07→23:28)
[2021-07-29] MEDS: LEVALBUTEROL 1.25MG/0.5ML NEB INH SCH ×5 (00:13→19:16)
[2021-07-29] MEDS: IPRATROPIUM BROMIDE NEB SOLN 0.02% 2.5 ML VIAL INH SCH ×5 (00:13→19:16)
[2021-07-29] MEDS: traZODone HCL 50 MG TAB PO SCH ×2 (02:18→21:19)
[2021-07-29 05:49] LABS: Basophils # (auto) 0.01 K/uL (0-0.2); Basophils % (auto) 0.2 %; Hematocrit (blood only) 39.3 % (37-47); Hemoglobin 12.3 g/dL (12.0-16.0); Immature Granulocytes # (auto) 0.01 K/uL (0.00-0.02); Immature Granulocytes % (auto) 0.2 %; Lymphocytes # (auto) 2.08 K/uL (1.2-3.4); Lymphocytes % (auto) 41.4 %; Mean Corpuscular Hemoglobin 28.9 pg (25-34); Mean Corpuscular Hgb Conc 31.3 g/dL (32-36); Mean Corpuscular Volume 92.3 fL (80-100); Mean Platelet Volume 9.6 fL (7.4-10.4); Monocytes # (auto) 0.84 K/uL (0.11-0.59); Monocytes % (auto) 16.7 %; Neutrophils # (auto) 2.08 K/uL (1.4-6.5); Neutrophils % (auto) 41.5 %; Platelet Count 227 K/uL (130-400); RDW Coefficient of Variation 14.8 % (11.5-14.5); RDW Standard Deviation 50.6 fL (36.4-46.3); Red Blood Count 4.26 M/uL (4.2-5.4); White Blood Count 5.02 K/uL (4.8-10.8)
[2021-07-29 06:11] LABS: BUN Creatinine Ratio 28.9 (10-20); Calcium 9.5 mg/dl (8.5-10.1); Creatinine Clr Calc Pharmacy 88.2 ml/min; Est GFR (African American) 95.4 ml/min; Est GFR (Non-African American) 82.3 ml/min; Magnesium 1.9 mg/dl (1.7-2.4); Potassium 3.8 mmol/L (3.5-5.1)
[2021-07-29] MEDS: BENZONATATE 100 MG CAPSULE PO PRN (07:34)
[2021-07-29] MEDS: DULoxetine HCL 60 MG CAP PO SCH (08:09)
[2021-07-29] MEDS: CHOLECALCIFEROL 1,000 UNITS 25 MCG TAB PO SCH (08:09)
[2021-07-29] MEDS: ENOXAPARIN INJ 40 MG/0.4 ML SYR SQ SCH (08:09)
[2021-07-29] MEDS: FENOFIBRATE NANOCRYSTALLIZED 48 MG TABLET PO SCH (08:09)
[2021-07-29] MEDS: OSELTAMIVIR PHOSPHATE 75 MG CAP PO SCH ×2 (08:09→21:18)
[2021-07-29] MEDS: predniSONE 20 MG TAB PO SCH (08:09)
[2021-07-29] MEDS: HYDROCODONE/ACETAMOPHEN 5/325MG TAB PO PRN ×2 (09:21→16:00)
[2021-07-29] MEDS ORDERED: COUGH DROP (SUGAR FREE) LOZ 24 LOZ/1 BOX BUCCAL ONE ×2 (09:33→15:30)
--- NOTE | 2021-07-29 18:38 | Hospitalist Progress Note ---
Date of Service July 29, 2021 Assessment & Plan (1) Influenza A: Plan: ASSESSMENT AND PLAN: This is a 65-year-old female who presents with a fever, cough, shortness of breath, nausea and vomiting and presently having Influenza A. 1. Influenza A, acute bronchitis, possible mild COPD exacerbation Improving gradually Continue Tamiflu Continue prednisone, nebs Monitor closely 2. History of COVID in 04/2021. Currently, COVID is negative. 3. History of depression. Continue with duloxetine. 4. Hyperlipidemia. Continue fenofibrate, lovastatin. 5. Hypertension on metoprolol. Monitor BP 6. Gastroesophageal reflux disease, on famotidine. 7. Restless legs syndrome, on pramipexole. Urinary incontinence Oxybutynin 5 [address] ordered in [address] of patient's usual Vesicare, as it is nonformulary 8. Deep venous thrombosis prophylaxis: Lovenox. Disposition Anticipate discharge to home when medically stable Admission and Anticipated Discharge Date Admission Date: July 28, 2021 Subjective Follow-up for influenza, acute bronchitis, etc. Seen resting in bed, comfortable, not in distress States breathing is gradually improving Still having dry cough, sore throat Still feels somewhat weak No shortness of breath Reports urinary incontinence which is chronic Denies dysuria, fevers or chills Review of Systems Review of Systems: all noted and negative except for above Physical Exam Physical Exam: General- oriented x 3, not in distress, speaks in sentences with no effort or accessory muscle use Eyes- anicteric Neck- no JVD Lungs-mild rhonchi bilateral bases, good air entry, no wheezing Heart- normal rate, regular rhythm; no murmurs Abdomen- normal bowel sounds, nondistended, soft, nontender Extremities- trace pretibial edema, no calf tenderness Neuro- alert, oriented x 3; no gross focal neurologic deficits Skin- warm & dry Results & Data Results & Data ([facility]) Vital Signs (Past 12 Hours) Vital Signs Temp Pulse Resp BP Pulse Ox 07/29/21 14:55 36.3 C L 70 19 145/73 H 92 07/29/21 13:13 72 18 97 07/29/21 08:23 36.8 C 67 16 169/78 H 97 07/29/21 07:33 67 18 94 all noted and reviewed including below
[2021-07-29] MEDS: OXYBUTYNIN CHLORIDE 5 MG TAB PO SCH (19:35)
[2021-07-29] MEDS: FAMOTIDINE 20 MG TAB PO SCH (21:17)
[2021-07-29] MEDS: LOVASTATIN 20 MG TAB PO SCH (21:18)
[2021-07-29] MEDS: PRAMIPEXOLE DIHYDROCHLO 0.5 MG TAB PO SCH (21:19)
[2021-07-29] MEDS: METOPROLOL SUCC 50MG EXT REL TAB PO SCH (21:22)
[2021-07-30] MEDS: LEVALBUTEROL 1.25MG/0.5ML NEB INH SCH ×4 (00:10→19:25)
[2021-07-30] MEDS: IPRATROPIUM BROMIDE NEB SOLN 0.02% 2.5 ML VIAL INH SCH ×4 (00:11→19:25)
[2021-07-30] MEDS: HYDROCODONE/ACETAMOPHEN 5/325MG TAB PO PRN ×3 (01:46→20:17)
[2021-07-30] MEDS: VESICARE: ORDER AWAITING ACTION SCH ×3 (08:26→23:02)
[2021-07-30] MEDS: OXYBUTYNIN CHLORIDE 5 MG TAB PO SCH (08:28)
[2021-07-30] MEDS: predniSONE 20 MG TAB PO SCH (08:28)
[2021-07-30] MEDS: OSELTAMIVIR PHOSPHATE 75 MG CAP PO SCH ×2 (08:28→20:19)
[2021-07-30] MEDS: CHOLECALCIFEROL 1,000 UNITS 25 MCG TAB PO SCH (08:29)
[2021-07-30] MEDS: ENOXAPARIN INJ 40 MG/0.4 ML SYR SQ SCH (08:29)
[2021-07-30] MEDS: FENOFIBRATE NANOCRYSTALLIZED 48 MG TABLET PO SCH (08:29)
[2021-07-30] MEDS: DULoxetine HCL 60 MG CAP PO SCH (08:29)
[2021-07-30] MEDS: ALBUTEROL HFA 8 GM INHALER INH PRN ×2 (12:03→18:22)
--- NOTE | 2021-07-30 18:33 | Hospitalist Progress Note ---
Date of Service July 30, 2021 Assessment & Plan (1) Influenza A: Plan: ASSESSMENT AND PLAN: This is a 65-year-old female who presents with a fever, cough, shortness of breath, nausea and vomiting and presently having Influenza A. 1. Influenza A, acute bronchitis, possible mild COPD exacerbation continues to improve on room air Continue Tamiflu Continue prednisone, nebs Monitor closely 2. History of COVID in 04/2021. Currently, COVID is negative. 3. History of depression. Continue with duloxetine. 4. Hyperlipidemia. Continue fenofibrate, lovastatin. 5. Hypertension on metoprolol. Monitor BP mostly at goal 6. Gastroesophageal reflux disease, on famotidine. 7. Restless legs syndrome, on pramipexole. 8. Urinary incontinence Oxybutynin 5 mg daily ordered in place of patient's usual Vesicare, as it is non formulary resolved 8. Deep venous thrombosis prophylaxis: Lovenox. Disposition Anticipate discharge to home tomorrow Admission and Anticipated Discharge Date Admission Date: July 28, 2021 Subjective ff up for Flu A, acute bronchitis, etc seen resting in bed, watching TV comfortable states she continues to feel improved still has some cough no dyspnea, chest pain urinary incontinence resolved no other symptoms Review of Systems Review of Systems: all noted and negative except for above Physical Exam Physical Exam: General- oriented x 3, not in distress, speaks in sentences with no effort or accessory muscle use Eyes- anicteric Neck- no JVD Lungs- clear breath sounds bilaterally, no wheezing, no crackles Heart- normal rate, regular rhythm; no murmurs Abdomen- normal bowel sounds, nondistended, soft, nontender Extremities- no pretibial edema, no calf tenderness Neuro- alert, oriented x 3; no gross focal neurologic deficits Skin- warm & dry Results & Data Results & Data ([facility]) Vital Signs (Past 12 Hours) Vital Signs Temp Pulse Resp BP Pulse Ox 07/30/21 15:15 36.5 C 70 18 168/82 H 93 07/30/21 12:57 72 18 95 07/30/21 07:27 36.4 C L 67 19 130/74 95 07/30/21 07:11 67 18 95 all noted and reviewed including below
[2021-07-30] MEDS: PRAMIPEXOLE DIHYDROCHLO 0.5 MG TAB PO SCH (20:18)
[2021-07-30] MEDS: LOVASTATIN 20 MG TAB PO SCH (20:18)
[2021-07-30] MEDS: METOPROLOL SUCC 50MG EXT REL TAB PO SCH (20:18)
[2021-07-30] MEDS: traZODone HCL 50 MG TAB PO SCH (20:19)
[2021-07-30] MEDS: FAMOTIDINE 20 MG TAB PO SCH (20:19)
[2021-07-31] MEDS: IPRATROPIUM BROMIDE NEB SOLN 0.02% 2.5 ML VIAL INH SCH ×4 (00:25→20:24)
[2021-07-31] MEDS: LEVALBUTEROL 1.25MG/0.5ML NEB INH SCH ×4 (00:25→20:24)
[2021-07-31] MEDS: DULoxetine HCL 60 MG CAP PO SCH (09:26)
[2021-07-31] MEDS: CHOLECALCIFEROL 1,000 UNITS 25 MCG TAB PO SCH (09:26)
[2021-07-31] MEDS: VESICARE: ORDER AWAITING ACTION SCH ×3 (09:26→23:13)
[2021-07-31] MEDS: ENOXAPARIN INJ 40 MG/0.4 ML SYR SQ SCH (09:27)
[2021-07-31] MEDS: OXYBUTYNIN CHLORIDE 5 MG TAB PO SCH (09:28)
[2021-07-31] MEDS: FENOFIBRATE NANOCRYSTALLIZED 48 MG TABLET PO SCH (09:28)
[2021-07-31] MEDS: OSELTAMIVIR PHOSPHATE 75 MG CAP PO SCH ×2 (09:28→20:27)
[2021-07-31] MEDS: predniSONE 20 MG TAB PO SCH (09:28)
[2021-07-31] MEDS: HYDROCODONE/ACETAMOPHEN 5/325MG TAB PO PRN ×2 (09:33→20:27)
--- NOTE | 2021-07-31 16:58 | Hospitalist Progress Note ---
Date of Service July 31, 2021 Assessment & Plan (1) Influenza A: Plan: ASSESSMENT AND PLAN: This is a 65-year-old female who presents with a fever, cough, shortness of breath, nausea and vomiting and presently having Influenza A. 1. Influenza A, Acute bronchitis, possible mild COPD exacerbation improving daily on room air Continue Tamiflu Continue prednisone- taper, nebs add Breo Monitor closely 2. History of COVID in 04/2021. Currently, COVID is negative. 3. History of depression. Continue with duloxetine. 4. Hyperlipidemia. Continue fenofibrate, lovastatin. 5. Hypertension on metoprolol. Monitor BP mostly at goal 6. Gastroesophageal reflux disease, on famotidine. 7. Restless legs syndrome, on pramipexole. 8. Urinary incontinence Oxybutynin 5 mg daily ordered in place of patient's usual Vesicare, as it is non formulary resolved 8. Deep venous thrombosis prophylaxis: Lovenox. Disposition Anticipate discharge to home tomorrow plan of care discussed with patient in detail and at length all questions answered she is understanding, agreeable, comfortable with the plan of care Admission and Anticipated Discharge Date Admission Date: July 28, 2021 Subjective ff up for Influenza A, Acute Bronchitis, etc seen resting in bed, comfortable not in distress states she is improving but feels tired today breathing improving but feels she is not yet ready to go home denies chest pain still has some cough no other symptoms Review of Systems Review of Systems: all noted and negative except for above Physical Exam Physical Exam: General- oriented x 3, not in distress, speaks in sentences with no effort or accessory muscle use Eyes- anicteric Neck- no JVD Lungs- clear breath sounds bilaterally, no crackles/wheezing Heart- normal rate, regular rhythm; no murmurs Abdomen- normal bowel sounds, nondistended, soft, nontender Extremities- no pretibial edema, no calf tenderness Neuro- alert, oriented x 3; no gross focal neurologic deficits Skin- warm & dry Results & Data Results & Data ([facility]) Vital Signs (Past 12 Hours) Vital Signs Temp Pulse Pulse Resp BP Pulse Ox 07/31/21 15:03 36.5 C 63 18 135/71 91 07/31/21 13:13 73 18 96 07/31/21 07:48 36.7 C 75 66 16 130/68 93 07/31/21 07:21 36.9 C 80 16 98/62 L 94 all noted and reviewed including below
[2021-07-31] MEDS: FLUTICASONE/VILANTEROL 100/25MCG 14 PUFFS/INHALER INH SCH (17:45)
[2021-07-31] MEDS: traZODone HCL 50 MG TAB PO SCH (20:26)
[2021-07-31] MEDS: LOVASTATIN 20 MG TAB PO SCH (20:26)
[2021-07-31] MEDS: METOPROLOL SUCC 50MG EXT REL TAB PO SCH (20:27)
[2021-07-31] MEDS: BENZONATATE 100 MG CAPSULE PO PRN (20:27)
[2021-07-31] MEDS: FAMOTIDINE 20 MG TAB PO SCH (20:28)
[2021-07-31] MEDS: PRAMIPEXOLE DIHYDROCHLO 0.5 MG TAB PO SCH (20:28)
[2021-08-01] MEDS: LEVALBUTEROL 1.25MG/0.5ML NEB INH SCH ×3 (01:09→12:43)
[2021-08-01] MEDS: IPRATROPIUM BROMIDE NEB SOLN 0.02% 2.5 ML VIAL INH SCH ×3 (01:10→12:43)
[2021-08-01] MEDS: VESICARE: ORDER AWAITING ACTION SCH (07:28)
[2021-08-01] MEDS: FENOFIBRATE NANOCRYSTALLIZED 48 MG TABLET PO SCH (07:32)
[2021-08-01] MEDS: FLUTICASONE/VILANTEROL 100/25MCG 14 PUFFS/INHALER INH SCH (07:32)
[2021-08-01] MEDS: DULoxetine HCL 60 MG CAP PO SCH (07:32)
[2021-08-01] MEDS: HYDROCODONE/ACETAMOPHEN 5/325MG TAB PO PRN (07:32)
[2021-08-01] MEDS: ENOXAPARIN INJ 40 MG/0.4 ML SYR SQ SCH (07:33)
[2021-08-01] MEDS: OSELTAMIVIR PHOSPHATE 75 MG CAP PO SCH (07:33)
[2021-08-01] MEDS: OXYBUTYNIN CHLORIDE 5 MG TAB PO SCH (07:33)
[2021-08-01] MEDS: CHOLECALCIFEROL 1,000 UNITS 25 MCG TAB PO SCH (07:34)
[2021-08-01] MEDS ORDERED: predniSONE 10 MG TABLET PO SCH (09:00)
--- NOTE | 2021-08-01 17:11 | Discharge Summary ---
Date of Service August 01, 2021 Admission HPI Per Admitting Provider A 65-year-old female with past medical history significant for COPD, obesity, COSTA, hyperlipidemia, prediabetes, fibromyalgia, osteoarthritis, restless legs syndrome, panic disorder, who presents with fever, chills, cough, shortness of breath, headache, nausea, vomiting, vomited a couple of times. The patient had COVID in April. She thought this is an COVID and came here and she was found to be flu positive. Patient is saturating okay on 2 liters. Somewhat tachycardic. Denies any chest pain. Has some headache, no blurred visions, no runny nose or sore throat. Appetite is down. She has alternating diarrhea and constipation from irritable bowel syndrome. Peeing a lot, no swelling in the legs . Hemodynamically stable. Admission Exam Per Admitting Provider GENERAL: The patient is of moderate build, not in acute distress. VITAL SIGNS: Temperature 37.3, pulse 96, respiratory rate 20, blood pressure 169/92, oxygen 95% on 2 liters. HEENT: Pupils equal, round and reactive to light. Oral mucosa moist. NECK: No JVD. No neck masses. CARDIOVASCULAR: S1 and S2 heard. Regular rate and rhythm. No murmur, no gallop. RESPIRATORY SYSTEM: Normal AP diameter. No accessory muscle use. No wheezing, no crackles. ABDOMEN: Soft, bowel sounds present, nontender, no distention. CENTRAL NERVOUS SYSTEM: Cranial nerves II-XII grossly intact, nonfocal. EXTREMITIES: Trace pedal edema present, no erythema seen. Principal Diagnosis Influenza A Discharge Exam Constitutional WD/WN, vitals as above Respiratory normal respiratory effort, lungs clear to auscultation Cardiovascular Rate/Rhythm: regular rate and regular rhythm Vessels: normal peripheral pulses Extremities: no edema Gastrointestinal (Abdomen) Percussion/Palpation: abdomen soft; abdomen nontender Skin no rashes, warm and dry Neurologic no focal motor deficits Psychiatric A+Ox3, euthymic affect Discharge Data Allergies Allergy/AdvReac Type Severity Reaction Status Date / Time diphenhydramine Allergy Intermediate SKIN Verified 07/27/21 23:31 IRRITATION hydroxychloroquine Allergy Intermediate SEVERE Verified 07/27/21 23:31 SKIN REACTION, HIVES methylprednisolone Allergy Intermediate SKIN Verified 07/27/21 23:31 IRRITATION neomycin Allergy Mild RASH Verified 02/17/22 23:31 Ordered Studies Laboratory Results WBC 5.02 K/uL (4.8-10.8) 07/29/21 05:19 RBC 4.26 M/uL (4.2-5.4) 07/29/21 05:19 Hgb 12.3 g/dL (12.0-16.0) 07/29/21 05:19 Hct 39.3 % (37-47) 07/29/21 05:19 MCV 92.3 fL (80-100) 07/29/21 05:19 MCH 28.9 pg (25-34) 07/29/21 05:19 MCHC 31.3 g/dL (32-36) L 07/29/21 05:19 RDW Std Deviation 50.6 fL (36.4-46.3) H 07/29/21 05:19 RDW Coeff of Ana 14.8 % (11.5-14.5) H 07/29/21 05:19 Plt Count 227 K/uL (130-400) 07/29/21 05:19 MPV 9.6 fL (7.4-10.4) 07/29/21 05:19 Immature Gran % (Auto) 0.2 % 07/29/21 05:19 Neut % (Auto) 41.5 % 07/29/21 05:19 Lymph % (Auto) 41.4 % 07/29/21 05:19 Morrison % (Auto) 16.7 % 07/29/21 05:19 Eos % (Auto) 0.0 % 07/29/21 05:19 Baso % (Auto) 0.2 % 07/29/21 05:19 Neut # (Auto) 2.08 K/uL (1.4-6.5) 07/29/21 05:19 Lymph # (Auto) 2.08 K/uL (1.2-3.4) 07/29/21 05:19 Morrison # (Auto) 0.84 K/uL (0.11-0.59) H 07/29/21 05:19 Eos # (Auto) 0.00 K/uL (0-0.5) 07/29/21 05:19 Baso # (Auto) 0.01 K/uL (0-0.2) 07/29/21 05:19 Immature Gran # (Auto) 0.01 K/uL (0.00-0.02) 07/29/21 05:19 PT 10.3 Seconds (9.0-12.0) 07/27/21 20:40 INR 1.0 (0.9-1.1) 07/27/21 20:40 APTT 25.9 Seconds (21.0-31.0) 07/27/21 20:40 PTT Ratio 1.0 07/27/21 20:40 Sodium 138 mmol/L (136-145) 07/29/21 05:19 Potassium 3.8 mmol/L (3.5-5.1) 07/29/21 05:19 Chloride 104 mmol/L (98-107) 07/29/21 05:19 Carbon Dioxide 30 mmol/L (21-32) 07/29/21 05:19 Anion Gap 4 (3-11) 07/29/21 05:19 BUN 22 mg/dl (6-23) 07/29/21 05:19 Creatinine 0.76 mg/dl (0.6-1.2) 07/29/21 05:19 Est Cr Clr Drug Dosing 88.2 ml/min 07/29/21 05:19 Est GFR ( Amer) 95.4 ml/min 07/29/21 05:19 Est GFR (Non-Af Amer) 82.3 ml/min 07/29/21 05:19 BUN/Creatinine Ratio 28.9 (10-20) H 07/29/21 05:19 Glucose 106 mg/dl (70-99(Fasting)) H 07/29/21 05:19 Lactate 0.6 mmol/L (0.4-2.0) 07/28/21 01:16 Calcium 9.5 mg/dl (8.5-10.1) 07/29/21 05:19 Magnesium 1.9 mg/dl (1.7-2.4) 07/29/21 05:19 Total Bilirubin Cancelled 07/28/21 Unknown AST Cancelled 07/28/21 Unknown ALT Cancelled 07/28/21 Unknown Alkaline Phosphatase Cancelled 07/28/21 Unknown Troponin I Cancelled 07/28/21 Unknown Total Protein Cancelled 07/28/21 Unknown Albumin Cancelled 07/28/21 Unknown Globulin Cancelled 07/28/21 Unknown Albumin/Globulin Ratio Cancelled 07/28/21 Unknown Procalcitonin Cancelled 07/28/21 Unknown Urine Color Yellow 07/28/21 Unknown Urine Appearance Cloudy (Clear) A 07/28/21 Unknown Urine pH 7.0 (4.5-7.5) 07/28/21 Unknown Ur Specific [place] 1.021 (1.000-1.030) 07/28/21 Unknown Urine Protein Negative (Negative) 07/28/21 Unknown Urine Glucose (UA) Negative (Negative) 07/28/21 Unknown Urine Ketones Negative (Negative) 07/28/21 Unknown Urine Blood Negative (Negative) 07/28/21 Unknown Urine Nitrite Negative (Negative) 07/28/21 Unknown Urine Bilirubin Negative (Negative) 07/28/21 Unknown Urine Urobilinogen Negative (Negative) 07/28/21 Unknown Ur Leukocyte Esterase Negative (Negative) 07/28/21 Unknown Urine WBC (Auto) 0 /hpf (0-5) 07/28/21 Unknown Urine RBC (Auto) 0-4 /hpf (0-4) 07/28/21 Unknown U Hyaline Cast (Auto) 0 /lpf (0-5) 07/28/21 Unknown U Epithel Cells (Auto) 5-10 /lpf (0-5) H 07/28/21 Unknown Urine Bacteria (Auto) Negative (Negative) 07/28/21 Unknown Adenovirus (PCR) Not Detected (NotDetected) 07/28/21 00:33 B. pertussis DNA (PCR) Not Detected (NotDetected) 07/28/21 00:33 B.parapertussis DNA PCR Not Detected (NotDetected) 07/28/21 00:33 C. pneumoniae DNA (PCR) Not Detected (NotDetected) 07/28/21 00:33 Coronavirus OC43 (PCR) Not Detected (NotDetected) 07/28/21 00:33 Coronavirus HKU1 (PCR) Not Detected (NotDetected) 07/28/21 00:33 Coronavirus 229E (PCR) Not Detected (NotDetected) 07/28/21 00:33 SARS-CoV-2 (PCR) Not Detected (NotDetected) 07/28/21 00:33 Coronavirus NL63 (PCR) Not Detected (NotDetected) 07/28/21 00:33 Human Metapneumovir PCR Not Detected (NotDetected) 07/28/21 00:33 Influenza A (H3) PCR DETECTED (NotDetected) A* 07/28/21 00:33 Influenza Type B (PCR) Not Detected (NotDetected) 07/28/21 00:33 M. pneumoniae (PCR) Not Detected (NotDetected) 07/28/21 00:33 Parainfluenza 1 (PCR) Not Detected (NotDetected) 07/28/21 00:33 Parainfluenza 2 (PCR) Not Detected (NotDetected) 07/28/21 00:33 Parainfluenza 3 (PCR) Not Detected (NotDetected) 07/28/21 00:33 Parainfluenza 4 (PCR) Not Detected (NotDetected) 07/28/21 00:33 RSV (PCR) Not Detected (NotDetected) 07/28/21 00:33 Entero/Rhino (PCR) Not Detected (NotDetected) 07/28/21 00:33 Impressions Chest X-Ray 07/27/21 23:24 XR chest 1V portable CLINICAL HISTORY: SEPSIS. Evaluate cardiopulmonary status COMPARISON STUDY: 05/05/2021 TECHNIQUE: 1 view of the chest FINDINGS: Single frontal view of the chest demonstrates the cardiomediastinal silhouette to be within normal limits. There is a decreased inspiratory effort with elevation of the hemidiaphragms and crowding of the bronchovascular markings at the lung bases and centrally. The lungs are clear of alveolar opacities. There is no evidence for pleural effusion. There is no evidence for vascular congestion. There is no acute osseous pathology. IMPRESSION: 1. Compared to the previous examination, there is a decreased inspiratory effort with otherwise no acute chest disease. ACT 112: Negative or not required by law. Electronically signed by: Hay Garcia M.D. 07/28/2021 7:54 AM Venous Doppler Study 07/28/21 20:00 BILATERAL LOWER EXTREMITY VENOUS DOPPLER HISTORY: Acute pain and swelling of the lower legs leg edema, pain, r/o dvt COMPARISON STUDY: Duplex Doppler study 05/09/2012 FINDINGS: There is normal compressibility, flow, and augmentation within the bilateral lower extremity deep venous systems. IMPRESSION: No DVT within the right or left lower extremity. ACT 112: Negative or not required by law. Electronically signed by: Kwabena Deutsch M.D. 07/28/2021 9:22 PM Hospital Course (1) Influenza A: A 65-year-old female with past medical history significant for COPD, obesity, COSTA, hyperlipidemia, prediabetes, fibromyalgia, osteoarthritis, restless legs syndrome, panic disorder, who presented with fever, chills, cough, shortness of breath, headache, nausea, vomiting. Influenza A Bronchitis Possible mild COPD exacerbation Patient saturating well on room air Continue Tamiflu to complete a 5-day course Continue short prednisone taper Breo added Provided prescription for nebulizer machine for home History of COVID in 04/2021 Currently, COVID is negative. History of depression Continue with duloxetine. Hyperlipidemia Continue fenofibrate, lovastatin. Hypertension BP controlled, continue metoprolol GERD On famotidine RLS On pramipexole Urinary incontinence Oxybutynin [address] in [address] of patient's usual Vesicare, as it is non formulary. Patient states that she prefers oxybutynin. Prescription provided at discharge. Attending Addendum: care coordinated with FABI Lagunas please refer to her notes for full details, I agree with her notes patient seen and examined, records reviewed by myself as well on exam, patient seen resting in bed, comfortable breathing better, cough mostly resolved no chest pain no other symptoms VS noted and reviewed oriented x 3, not in distress, speaks in sentences with no effort nor accessory muscle use normal rate, regular rhythm, no murmurs clear breath sounds bilaterally non distended, soft, nontender no bipedal edema, erythema, warmth no neuro deficits ASSESSMENT AND PLAN ACUTE BRONCHITIS INFLUENZA A INFECTION d/c home today Tamiflu, Prednisone, Breo, Nebs other diagnoses and plan of care as per FABI Lagunas's notes Guevara Hopkins MD Total Time Total Time Spent Total Time Spent (In Minutes): 35 Discharge Plan Discharge Items Patient Disposition: Home - Self-Care Reason For Visit: Shortness of Breath Discharge Diagnosis: Influenza A Activity: Resume your previous activity Activity Comment: as tolerated Non-emergency contact: Primary Care Provider Call non-emergency contact if: you have any medication questions, your symptoms worsen, your pain is not controlled and you have a fever Follow-up/Referrals: Mica Orourke [Primary Care Provider] - 08/07/21 2:30 pm Diet: Heart Healthy [facility] Attending Provider Instructions: You came to the hospital for evaluation of shortness of breath. You tested positive for influenza A. You were started on Tamiflu, you will need 1 additional dose this evening to complete a 5-day course. You were also started on a steroid taper. Take prednisone 20 mg x 1 day, 10 mg x 1 day, then stop. You were started on inhaler Breo Ellipta. Home nebulizer has been arranged for you. Home medication Vesicare was changed to oxybutynin. Continue to take all other medications as previously prescribed. Follow-up appointment has made for your PCP, please keep this appointment as scheduled. It was a pleasure taking care of you. If you need to reach a member of the [facility] hospitalist team [facility] [place], please call [phone]. FABI Spencer Pending Studies at Discharge: No Stand-Alone Forms: My [facility] [employer], Smoking Cessation Medications and DC Order Prescriptions: New prednisone 10 mg Tablet See Rx Instructions .ROUTE .COMPLEX Qty: 3 RF: 0 benzonatate 100 mg Capsule 100 mg PO TID PRN (Reason: cough) Qty: 10 RF: 0 oseltamivir [Tamiflu] 75 mg Capsule 75 mg PO BID Qty: 1 RF: 0 oxybutynin chloride 5 mg Tablet 5 mg PO DAILY Qty: 30 RF: 0 Breo Ellipta 100-25 mcg/dose Blister With Device 1 inh inhalation DAILY Qty: 60 RF: 0 ipratropium-albuterol 0.5 mg-3 mg(2.5 mg base)/3 mL solution for nebulization 3 ml inhalation Q8H PRN (Reason: wheezing) Qty: 90 RF: 0 Continued acetaminophen [Tylenol] 325 mg Tablet 650 mg PO QID PRN (Reason: Fever Or Pain) RF: 0 pramipexole 0.5 mg tablet 0.5 mg PO HS RF: 0 lovastatin 20 mg tablet 20 mg PO HS RF: 0 duloxetine 60 mg capsule,delayed release(DR/EC) 120 mg PO QAM RF: 0 fenofibrate 54 mg tablet 54 mg PO QAM RF: 0 Combivent Respimat 20-100 mcg/actuation mist 1 puff INHALATION Q6H PRN (Reason: Shortness Of Breath) RF: 0 cholecalciferol (vitamin D3) [Vitamin D3] 25 mcg (1,000 unit) Tablet 50 mcg PO BID RF: 0 metoprolol succinate 100 mg tablet extended release 24 hr 100 mg PO HS RF: 0 famotidine 20 mg tablet 20 mg PO HS RF: 0 hydrocodone-acetaminophen 5-325 mg tablet 1 tab PO TID PRN (Reason: pain) RF: 0 ondansetron 4 mg tablet,disintegrating 0.4 mg translingual DAILY PRN (Reason: Nausea) RF: 0 celecoxib 100 mg capsule 100 mg PO DAILY RF: 0 trazodone 50 mg tablet 50 mg PO DAILY RF: 0 Discontinued solifenacin [Vesicare] 5 mg tablet 5 mg PO DAILY Qty: 90 RF: 3 Discharge Orders: Discharge Order (Routine); Ordered 08/01/21 Ordered By: Yolie Viramontes/Other Patient Handouts: Using a Nebulizer (Adult) Admission Data Admit Date/Time: 07/28/21 04:51 Attending Provider: Guevara Hopkins Admit Provider: Frantz Baird Primary Care Provider: Mica Orourke Other Providers: Frantz Baird Other Interventions: Discharge Summary Assessment (RN) Last Done: 08/01/21 14:36
== END 2021-08-01 14:58 | disposition home or self-care (01) | DRG 194 ==
LOC: ED 23:10 → EDINP 07-28 04:51 → 3E 07-28 19:45